=== PATIENT | male | born 1935 | race Caucasian/White ===

== ENCOUNTER 2017-04-10 02:08 | Observation (INO) | payer MEDICARE ==
[~2017-04-10] VITALS: Ht 177.8 cm; Wt 80.9 kg
[~2017-04-10 02:08] MED LIST: AMLO10TA2 PO; ASPI-630 PO; CARV6.252 PO; DONE10TA7 PO; FOSI40TA PO; HYDR12.53 PO; METF500T4 PO; MULT-208 PO; OMEG300C PO; POTASSIUM CHLO10 MEQ PO; SIMV40TA3 PO; TERA2CAP3 PO; VIT1TABL32 PO
[2017-04-10] MEDS ORDERED: NORMAL SALINE IV ONE (03:00)
[2017-04-10 03:09] LABS: BASO # 0.1 x10^3/uL (0.0-0.2); BASO % 1 % (0-3); EOS % 5 % (0-3); HEMOGLOBIN 13.4 g/dL (13.0-17.5); LYMPH # 3.8 x10^3/uL (1.0-4.8); LYMPH % 59 % (24-48); MEAN CORPUSCULAR HEMOGLOBIN 32 pg (25-35); MEAN CORPUSCULAR HGB CONC 34 g/dL (31-37); MEAN CORPUSCULAR VOLUME 92 fL (79-100); MONO % 7 % (0-9); NEUT % 29 % (31-73); PLATELET COUNT 84 x10^3/uL (140-400); RED BLOOD COUNT 4.24 x10^6/uL (4.30-5.70); RED CELL DISTRIBUTION WIDTH 14.4 % (11.5-14.5); WHITE BLOOD COUNT 6.4 x10^3/uL (4.0-11.0)
[2017-04-10] MEDS ORDERED: CONTRAST GIVEN MC PRN (03:15)
[2017-04-10] MEDS ORDERED: IOHEXOL 300 MG/ML 75 ML VIAL IV ONE (03:15)
[2017-04-10] MEDS ORDERED: MORPHINE SULFATE 4 MG/ML DISP.SYRIN. IV ONE ×2 (03:15→04:45)
[2017-04-10 03:19] LABS: CALCIUM 9.2 mg/dL (8.5-10.1); CREATININE 1.1 mg/dL (0.7-1.3); GFR 64.2; POTASSIUM 3.4 mmol/L (3.5-5.1)
[2017-04-10 03:25] LABS: ALBUMIN 3.3 g/dL (3.4-5.0); DIRECT BILIRUBIN 0.2 mg/dL (0.0-0.2); TOTAL BILIRUBIN 0.4 mg/dL (0.2-1.0); TOTAL PROTEIN 6.3 g/dL (6.4-8.2)
[2017-04-10] MEDS: IV NORMAL SALINE 1000ML BAG 1,000 ML IV SCH ×2 (03:25→03:53)
--- NOTE | 2017-04-10 04:13 | RAD ---
CT angiography chest with contrast HISTORY: Hypertension, back pain. TECHNIQUE: Helical CT imaging of the chest with multiplanar 3-D MIP reconstructions of the vessels to characterize vascular anatomy and pathology with 75 mL Omnipaque 300 intravenous contrast. FINDINGS: Extensive calcified plaque of the coronary arteries and thoracic aorta. No thoracic aortic aneurysm or dissection. Heart size normal. There is a thin septation of the central pulmonary artery to the lingula and left lower lobe. No acute pulmonary artery embolus. Esophagus is unremarkable. No adenopathy in the chest. Left hepatic lobe 5 cm oblong hypodense lesion density of 18 units. Smaller 1 cm central right hepatic lobe hypodense lesion density 11 units typical of a cyst. No pneumothorax, or opacities or pleural effusions. Bridging thoracic disc osteophytes are present. IMPRESSION: 1. No acute process. No acute pulmonary artery embolus. No thoracic aortic dissection. 2. Thin septation of the central lobar pulmonary artery to the left lower lobe and lingula, of uncertain significance, could be a fibrous band related to a prior embolus. 3. Indeterminate 5 cm hypodense lesion of the left hepatic lobe. Exposure: One or more of the following individualized dose reduction techniques were utilized for this examination: 1. Automated exposure control 2. Adjustment of the mA and/or kV according to patient size 3. Use of iterative reconstruction technique Electronically signed by: Marlo Puente MD (04/10/2017 4:09 AM) [facility]
--- NOTE | 2017-04-10 04:34 | PHYS DOC ---
Past Medical History Past Medical History: Dementia, Diabetes-Type II, High Cholesterol, Hypertension Past Surgical History: Cholecystectomy Alcohol Use: Heavy Drug Use: None Adult General Chief Complaint Chief Complaint: BACK PAIN - NO INJURY HPI HPI Patient is a 81 year old male with a history of dementia and hypertension who presents with complaints of back pain that feels "inside". Symptoms started last night and continuing the ED. History, ROS, physical exam limited secondary to dementia. Additional history given by the . Patient has been his usual state of health, has been taking the medications as prescribed, no recent falls , no recent illnesses. Complains of pain only started yesterday and is unusual for him. Review of Systems Review of Systems Constitutional: Denies fever or chills [] Eyes: Denies change in visual acuity, redness, or eye pain [] Respiratory: Denies cough or shortness of breath [] Cardiovascular: No chest pain GI: Denies abdominal pain, nausea, vomiting, bloody stools or diarrhea [] Musculoskeletal: yes to back pain Integument: Denies rash or skin lesions [] Neurologic: Denies headache, focal weakness or sensory changes [] ROS limited secondary to dementia Current Medications Current Medications Current Medications Medications (Trade) Dose Ordered Sig/Victor M Start Time Stop Time Status Last Admin Dose Admin Info (Do NOT chart on this entry -- for MONITORING) 1 each PRN DAILY PRN 04/10/17 03:15 04/12/17 03:14 Iohexol (Omnipaque 300 Mg/ml) 75 ml 1X ONCE 04/10/17 03:15 04/10/17 03:16 DC 04/10/17 03:30 75 ML Morphine Sulfate 4 mg 1X ONCE 04/10/17 03:15 04/10/17 03:16 DC 04/10/17 03:25 4 MG Sodium Chloride 1,000 ml @ 1,580 mls/hr Q38M 04/10/17 03:15 04/10/17 04:15 DC 04/10/17 03:25 1,580 MLS/HR Allergies Allergies Allergies Coded Allergies Type Severity Reaction Last Updated Verified No Known Drug Allergies 04/17/14 No Physical Exam Physical Exam Constitutional: Well developed, well nourished, mild distress, non-toxic appearance. [] HENT: Normocephalic, atraumatic, oropharynx dry, no oral exudates, nose normal. [] Eyes: EOMI, conjunctiva normal, no discharge. [] Neck: Normal range of motion, no tenderness, supple, no stridor. No LAD, no JVD , no meningeal signs Cardiovascular:Heart rate regular rhythm, no murmur, equal pulses, normal perfusion Lungs & Thorax: Bilateral breath sounds clear to auscultation, no tachypnea Abdomen: Bowel sounds normal, soft, no tenderness, no masses, no pulsatile masses. [] Skin: Warm, dry, no erythema, no rash. [] Back: No tenderness on palpation, no CVA tenderness. No midline tenderness to palpation, no step-offs Extremities: No tenderness, no cyanosis, ROM intact, no edema. [] Neurologic: Alert, normal motor function,, no focal deficits noted. [] Psychologic: cooperative Current Patient Data Vital Signs Vital Signs Date Time Temp Pulse Resp B/P (MAP) Pulse Ox O2 Delivery O2 Flow Rate FiO2 04/10/17 03:20 53 18 182/89 (120) 94 Room Air 04/10/17 02:20 97.9 97.9 Lab Values Laboratory Tests Test 04/10/17 03:00 White Blood Count 6.4 x10^3/uL (4.0-11.0) Red Blood Count 4.24 x10^6/uL (4.30-5.70) L Hemoglobin 13.4 g/dL (13.0-17.5) Hematocrit 39.0 % (39.0-53.0) Mean Corpuscular Volume 92 fL (79-100) Mean Corpuscular Hemoglobin 32 pg (25-35) Mean Corpuscular Hemoglobin Concent 34 g/dL (31-37) Red Cell Distribution Width 14.4 % (11.5-14.5) Platelet Count 84 x10^3/uL (140-400) L Neutrophils (%) (Auto) 29 % (31-73) L Lymphocytes (%) (Auto) 59 % (24-48) H Monocytes (%) (Auto) 7 % (0-9) Eosinophils (%) (Auto) 5 % (0-3) H Basophils (%) (Auto) 1 % (0-3) Neutrophils # (Auto) 1.9 x10^3uL (1.8-7.7) Lymphocytes # (Auto) 3.8 x10^3/uL (1.0-4.8) Monocytes # (Auto) 0.4 x10^3/uL (0.0-1.1) Eosinophils # (Auto) 0.3 x10^3/uL (0.0-0.7) Basophils # (Auto) 0.1 x10^3/uL (0.0-0.2) Platelet Estimate Pending Sodium Level 138 mmol/L (136-145) Potassium Level 3.4 mmol/L (3.5-5.1) L Chloride Level 102 mmol/L (98-107) Carbon Dioxide Level 28 mmol/L (21-32) Anion Gap 8 (6-14) Blood Urea Nitrogen 15 mg/dL (8-26) Creatinine 1.1 mg/dL (0.7-1.3) Estimated GFR (Cockcroft-Gault) 64.2 Glucose Level 135 mg/dL (70-99) H Calcium Level 9.2 mg/dL (8.5-10.1) Total Bilirubin 0.4 mg/dL (0.2-1.0) Direct Bilirubin 0.2 mg/dL (0.0-0.2) Aspartate Amino Transferase (AST) 23 U/L (15-37) Alanine Aminotransferase (ALT) 18 U/L (16-63) Alkaline Phosphatase 76 U/L (46-116) Troponin I Quantitative 0.021 ng/mL (0.000-0.055) HT-Xcu-K-Type Natriuretic Peptide 145 pg/mL (0-449) Total Protein 6.3 g/dL (6.4-8.2) L Albumin 3.3 g/dL (3.4-5.0) L Laboratory Tests 04/10/17 03:00 Laboratory Tests 04/10/17 03:00 EKG EKG 60, sinus rhythm, no STEMI, EP interpretation at 0220[] Radiology/Procedures Radiology/Procedures [] Course & Med Decision Making Course & Med Decision Making Pertinent Labs and Imaging studies reviewed. (See chart for details) IMPRESSION: 1. No acute process. No acute pulmonary artery embolus. No thoracic aortic dissection. 2. Thin septation of the central lobar pulmonary artery to the left lower lobe and lingula, of uncertain significance, could be a fibrous band related to a prior embolus. 3. Indeterminate 5 cm hypodense lesion of the left hepatic lobe. Pt still complains of pain. BP has improved, systolic 152 states this is unusual for him, ok with admit [] Dragon Disclaimer Dragon Disclaimer This electronic medical record was generated, in whole or in part, using a voice recognition dictation system. Departure Departure Impression: Primary Impression: Hypertension Additional Impression: Back pain Disposition: ADMITTED INPATIENT Admitting Physician: Zeny Lassiter Condition: STABLE Referrals: ERICA THOMAS Jr, MD (PCP) Problem Qualifiers Laura REA MD Apr 10, 2017 04:34
[2017-04-10] MEDS ORDERED: ONDANSETRON PF 4 MG/2 ML VIAL. IV PRN (04:45)
[2017-04-10] MEDS ORDERED: MORPHINE SULFATE 2 MG/ML DISP.SYRIN. IV PRN (04:45)
[2017-04-10 06:03] VITALS: BP 153/68
[2017-04-10] MEDS ORDERED: MEMA10TA PO (06:24)
[2017-04-10] MEDS ORDERED: PRAV40TA2 PO (06:31)
[2017-04-10] MEDS ORDERED: TERA5CAP3 PO (06:31)
[2017-04-10] MEDS ORDERED: POTA20TA4 PO (06:31)
[2017-04-10] MEDS ORDERED: fentaNYL PF VIAL 100 MCG/2 ML VIAL IV PRN (06:45)
[2017-04-10 07:00] VITALS: BP 139/65
[2017-04-10 07:57] LABS: % EOS 1 % (0-5)
[2017-04-10 07:58] LABS: PLT ESTIMATE DECREASED (ADEQUATE)
[2017-04-10] MEDS ORDERED: hydrALAZINE 20 MG/ML VIAL. IVP PRN (08:30)
[2017-04-10] MEDS: MULTIVITAMIN with MINERAL TABLET. PO SCH (09:00)
--- NOTE | 2017-04-10 09:23 | EKG ---
[facility] [address] [place] [address] Test Date: 2017-04-10 Test Time: 02:18:40 Pat Name: ERICA DOTY Department: Room: 202 1 Gender: M Is Manager: : 1935 Requested By: Laura REA Order Number: [id number] Reading MD: Shar Kowalski Measurements Intervals [place] Rate: 60 P: RI: QRS: -2 QRSD: 96 T: 64 QT: 432 QTc: 436 Interpretive Statements SINUS RHYTHM LEFTWARD AXIS Electronically Signed On 04-10-2017 15:11:00 CDT by Shar Kowalski
[2017-04-10] MEDS ORDERED: diphenhydrAMINE HCL 25 MG CAPSULE PO ONE (09:30)
[2017-04-10] MEDS: LIDOCAINE (700MG/PATCH) PATCH. TD PRN ×2 (09:31→15:19)
[2017-04-10] MEDS: amLODIPine BESYLATE 10 MG TABLET PO SCH (09:32)
[2017-04-10] MEDS: OMEGA-3 FATTY ACIDS/FISH OIL 1,000 MG CAPSULE. PO SCH (09:33)
[2017-04-10] MEDS: MULTIVITAMIN I-VITE TABLET. PO SCH (09:33)
[2017-04-10] MEDS: LISINOPRIL 40 MG TABLET. PO SCH (09:33)
[2017-04-10] MEDS: hydroCHLOROthiazide 25 MG TABLET PO SCH (09:33)
[2017-04-10] MEDS: CARVEDILOL 6.25 MG TABLET. PO SCH ×2 (09:33→16:08)
[2017-04-10] MEDS: ASPIRIN CHEWABLE 81 MG TABLET. PO SCH (09:33)
[2017-04-10] MEDS: ENOXAPARIN 40 MG/0.4 ML SYRINGE. SQ SCH (09:34)
[2017-04-10] MEDS: POTASSIUM CHLORIDE 20 MEQ TABLET.ER. PO SCH ×2 (09:36→16:07)
[2017-04-10 11:00] VITALS: BP 158/70
--- NOTE | 2017-04-10 12:47 | PDOC1 ---
History and Physical Date of Admission Date of Admission DATE: 04/10/17 TIME: 12:39 Identification/Chief Complaint Chief Complaint back pain, upper acute onset Problems: Source Source: Caregiver, Chart review, Patient History of Present Illness History of Present Illness Very pleasant 81 y.o male, lives at home with , no assistive device, bowls as a hobby, came to ER bec back pain and BP was high. CTA was done to r.o dissection and that was neg, All family members present, pt actually wants to go home. BUt we have not done anything yet, Agreed to stay, I will have pT.OT, physiatry and cancel cards consult - dw Dr. Marin, EKG ok, I can mange BP, Sees Dr Shadi Gifford as OP. BP 150s now systolic, no sxs when high BP, CLaims usual BP is 140s at home, complaint to meds. BAck pain was sudden onset, upper thru lower back, denies fall or recent trauma. NO bilateral leg weakness or urinary fecal incontinence. No CP. GOt morphine, for back pain, had some itching so I gave benadrylo PO, and now seems sleepy Fentanyl worked better, but will dec dose to 25mgs- opiate naive Past Medical History Cardiovascular: HTN CENTRAL NERVOUS SYSTEM: Dementia Past Surgical History Past Surgical History: No pertinent history Family History Family History: Hypertension Social History Smoke: No ALCOHOL: none Drugs: None Current Problem List Problem List Problems Medical Problems: (1) Back pain Status: Acute (2) Hypertension Status: Acute Problems: Current Medications Current Medications Current Medications Sodium Chloride 1,580 ml @ 1,580 mls/hr 1X ONCE IV ; Start 04/10/17 at 03:00; Stop 04/10/17 at 03:59; Status UNV Morphine Sulfate 4 mg 1X ONCE IV Last administered on 04/10/17 03:25; Start 04/10/17 at 03:15; Stop 04/10/17 at 03:16; Status DC Iohexol (Omnipaque 300 Mg/ml) 75 ml 1X ONCE IV Last administered on 04/10/17 03:30; Start 04/10/17 at 03:15; Stop 04/10/17 at 03:16; Status DC Sodium Chloride 1,000 ml @ 1,580 mls/hr Q38M IV Last administered on 03:25; Start 04/10/17 at 03:15; Stop 04/10/17 at 04:15; Status DC Info (Do NOT chart on this entry -- for MONITORING) 1 each PRN DAILY PRN MC SEE COMMENTS; Start 04/10/17 at 03:15; Stop 04/12/17 at 03:14 Morphine Sulfate 4 mg 1X ONCE IV Last administered on 04/10/17 04:57; Start 04/10/17 at 04:45; Stop 04/10/17 at 05:02; Status DC Ondansetron HCl (Zofran) 4 mg PRN Q8HRS PRN IV NAUSEA/VOMITING; Start 04/10/17 at 04:45; Stop 04/11/17 at 04:44 Morphine Sulfate 2 mg PRN Q2HR PRN IV PAIN; Start 04/10/17 at 04:45; Stop 04/10 at 09:23; Status DC Fentanyl Citrate (Fentanyl 2ml Vial) 50 mcg PRN Q2HR PRN IV PAIN Last administered on 04/10/17 07:27; Start 04/10/17 at 06:45 Hydralazine HCl (Apresoline) 10 mg PRN Q4HRS PRN IVP ELEVATED BP, SEE COMMENTS ; Start 04/10/17 at 08:30 Amlodipine Besylate (Norvasc) 10 mg DAILY PO Last administered on 04/10/17 09: 32; Start 04/10/17 at 09:00 Aspirin (Children'S Aspirin) 81 mg DAILY PO Last administered on 04/10/17 09: 33; Start 04/10/17 at 09:00 Carvedilol (Coreg) 3.125 mg BIDWMEALS PO Last administered on 04/10/17 09:33; Start 04/10/17 at 09:00 Donepezil HCl (Aricept) 20 mg DAILYWSUP PO ; Start 04/10/17 at 17:00 Hydrochlorothiazide (Hydrodiuril) 25 mg DAILY PO Last administered on 09:33; Start 04/10/17 at 09:00 Memantine (Namenda) 10 mg DAILYWSUP PO ; Start 04/10/17 at 17:00 Potassium Chloride (Klor-Con) 20 meq BIDWMEALS PO Last administered on 09:36; Start 04/10/17 at 09:00 Terazosin HCl (Hytrin) 5 mg QHS PO ; Start 04/10/17 at 21:00 Multivitamins/ Minerals (I-Peterson) 1 tab DAILY PO Last administered on 04/10/17 09:33; Start 04/10/17 at 09:00 Lisinopril (Prinivil) 40 mg DAILY PO Last administered on 04/10/17 09:33; Start 04/10/17 at 09:00 Multivitamins (Thera M Plus) 1 tab DAILY PO ; Start 04/10/17 at 09:00 Fish Oil (Fish Oil) 1,000 mg DAILY PO Last administered on 04/10/17 09:33; Start 04/10/17 at 09:00 Atorvastatin Calcium (Lipitor) 10 mg QHS PO ; Start 04/10/17 at 21:00 Enoxaparin Sodium (Lovenox 40mg Syringe) 40 mg Q24H SQ Last administered on 09:34; Start 04/10/17 at 08:30 Diphenhydramine HCl (Benadryl) 25 mg 1X ONCE PO Last administered on 09:32; Start 04/10/17 at 09:30; Stop 04/10/17 at 09:31; Status DC Lidocaine (Lidoderm) 1 patch PRN DAILY PRN TD PAIN Last administered on 09:31; Start 04/10/17 at 09:30 Active Scripts Active Reported Terazosin Hcl 5 Mg Capsule 1 Cap PO QHS Pravastatin Sodium 40 Mg Tablet 1 Tab PO QHS Klor-Con M20 (Potassium Chloride) 20 Meq Tab.er.prt 20 Meq PO BIDWMEALS Namenda (Memantine Hcl) 10 Mg Tablet 10 Mg PO DAILYWSUP Fish Oil ([place]-3 Fatty Acids) 300 Mg Capsule 300 Mg PO BID Multi-Day Vitamins (Multivitamin) 1 Each Tablet 1 Tab PO DAILY Amlodipine Besylate 10 Mg Tablet 10 Mg PO DAILY Hydrochlorothiazide Capsule (Hydrochlorothiazide) 12.5 Mg Capsule 25 Mg PO DAILY Aspirin 81 Mg Tab.chew 81 Mg PO Ocuvite Tablet (Vit A,C & E/Lutein/Minerals) 1 Each Tablet 1 Each PO Fosinopril Sodium 40 Mg Tablet 1 Tab PO DAILY Carvedilol 6.25 Mg Tablet 0.5 Tab PO BID Donepezil Hcl 10 Mg Tablet 20 Mg PO DAILYWSUP Allergies Allergies: Coded Allergies: No Known Drug Allergies (Unverified , 04/17/14) ROS Review of System weak, all else is neg except HPI Physical Exam General: Oriented X3, Cooperative, No acute distress, Other (slightly sleepy) HEENT: PERRLA Lungs: Clear to auscultation, Normal air movement Heart: RRR, no thrills, no rubs, no gallops Cardiovascular: S1, S2 Breasts: Normal, Rt breast nml w/o mass, Lt breast nml w/o mass, Nipples normal Abdomen: Normal bowel sounds, Soft, No tenderness, No hepatosplenomegaly, No masses Male Genitals Exam: normal genitalia Extremities: No clubbing, No cyanosis, No edema, Normal pulses, No tenderness/ swelling Skin: No rashes, No breakdown, No significant lesion Neuro: Normal gait, Normal speech, Strength at 5/5 X4 ext, Normal tone, Sensation intact, Cranial nerves 3-12 NL, Reflexes 2+ Psych/Mental Status: Mental status NL, Mood NL Vitals Vitals Vital Signs Date Time Temp Pulse Resp B/P (MAP) Pulse Ox O2 Delivery O2 Flow Rate FiO2 04/10/17 11:00 97.4 52 20 158/70 (99) 92 Room Air 97.4 Labs Labs Laboratory Tests Test 04/10/17 03:00 04/10/17 10:43 White Blood Count 6.4 x10^3/uL (4.0-11.0) Red Blood Count 4.24 x10^6/uL (4.30-5.70) Hemoglobin 13.4 g/dL (13.0-17.5) Hematocrit 39.0 % (39.0-53.0) Mean Corpuscular Volume 92 fL (79-100) Mean Corpuscular Hemoglobin 32 pg (25-35) Mean Corpuscular Hemoglobin Concent 34 g/dL (31-37) Red Cell Distribution Width 14.4 % (11.5-14.5) Platelet Count 84 x10^3/uL (140-400) Neutrophils (%) (Auto) 29 % (31-73) Lymphocytes (%) (Auto) 59 % (24-48) Monocytes (%) (Auto) 7 % (0-9) Eosinophils (%) (Auto) 5 % (0-3) Basophils (%) (Auto) 1 % (0-3) Neutrophils # (Auto) 1.9 x10^3uL (1.8-7.7) Lymphocytes # (Auto) 3.8 x10^3/uL (1.0-4.8) Monocytes # (Auto) 0.4 x10^3/uL (0.0-1.1) Eosinophils # (Auto) 0.3 x10^3/uL (0.0-0.7) Basophils # (Auto) 0.1 x10^3/uL (0.0-0.2) Segmented Neutrophils % 24 % (35-66) Lymphocytes % 72 % (24-48) Monocytes % 3 % (0-10) Eosinophils % 1 % (0-5) Platelet Estimate Decreased (ADEQUATE) Sodium Level 138 mmol/L (136-145) Potassium Level 3.4 mmol/L (3.5-5.1) Chloride Level 102 mmol/L (98-107) Carbon Dioxide Level 28 mmol/L (21-32) Anion Gap 8 (6-14) Blood Urea Nitrogen 15 mg/dL (8-26) Creatinine 1.1 mg/dL (0.7-1.3) Estimated GFR (Cockcroft-Gault) 64.2 Glucose Level 135 mg/dL (70-99) Calcium Level 9.2 mg/dL (8.5-10.1) Total Bilirubin 0.4 mg/dL (0.2-1.0) Direct Bilirubin 0.2 mg/dL (0.0-0.2) Aspartate Amino Transf (AST/SGOT) 23 U/L (15-37) Alanine Aminotransferase (ALT/SGPT) 18 U/L (16-63) Alkaline Phosphatase 76 U/L (46-116) Troponin I Quantitative 0.021 ng/mL (0.000-0.055) 0.021 ng/mL (0.000-0.055) TF-Mcb-T-Type Natriuretic Peptide 145 pg/mL (0-449) Total Protein 6.3 g/dL (6.4-8.2) Albumin 3.3 g/dL (3.4-5.0) Laboratory Tests Test 04/10/17 03:00 04/10/17 10:43 White Blood Count 6.4 x10^3/uL (4.0-11.0) Red Blood Count 4.24 x10^6/uL (4.30-5.70) Hemoglobin 13.4 g/dL (13.0-17.5) Hematocrit 39.0 % (39.0-53.0) Mean Corpuscular Volume 92 fL (79-100) Mean Corpuscular Hemoglobin 32 pg (25-35) Mean Corpuscular Hemoglobin Concent 34 g/dL (31-37) Red Cell Distribution Width 14.4 % (11.5-14.5) Platelet Count 84 x10^3/uL (140-400) Neutrophils (%) (Auto) 29 % (31-73) Lymphocytes (%) (Auto) 59 % (24-48) Monocytes (%) (Auto) 7 % (0-9) Eosinophils (%) (Auto) 5 % (0-3) Basophils (%) (Auto) 1 % (0-3) Neutrophils # (Auto) 1.9 x10^3uL (1.8-7.7) Lymphocytes # (Auto) 3.8 x10^3/uL (1.0-4.8) Monocytes # (Auto) 0.4 x10^3/uL (0.0-1.1) Eosinophils # (Auto) 0.3 x10^3/uL (0.0-0.7) Basophils # (Auto) 0.1 x10^3/uL (0.0-0.2) Segmented Neutrophils % 24 % (35-66) Lymphocytes % 72 % (24-48) Monocytes % 3 % (0-10) Eosinophils % 1 % (0-5) Platelet Estimate Decreased (ADEQUATE) Sodium Level 138 mmol/L (136-145) Potassium Level 3.4 mmol/L (3.5-5.1) Chloride Level 102 mmol/L (98-107) Carbon Dioxide Level 28 mmol/L (21-32) Anion Gap 8 (6-14) Blood Urea Nitrogen 15 mg/dL (8-26) Creatinine 1.1 mg/dL (0.7-1.3) Estimated GFR (Cockcroft-Gault) 64.2 Glucose Level 135 mg/dL (70-99) Calcium Level 9.2 mg/dL (8.5-10.1) Total Bilirubin 0.4 mg/dL (0.2-1.0) Direct Bilirubin 0.2 mg/dL (0.0-0.2) Aspartate Amino Transf (AST/SGOT) 23 U/L (15-37) Alanine Aminotransferase (ALT/SGPT) 18 U/L (16-63) Alkaline Phosphatase 76 U/L (46-116) Troponin I Quantitative 0.021 ng/mL (0.000-0.055) 0.021 ng/mL (0.000-0.055) EJ-Ban-N-Type Natriuretic Peptide 145 pg/mL (0-449) Total Protein 6.3 g/dL (6.4-8.2) Albumin 3.3 g/dL (3.4-5.0) VTE Prophylaxis Ordered VTE Prophylaxis Devices: Yes VTE Pharmacological Prophylaxi: Yes Assessment/Plan Assessment/Plan 1. Acute onset upper and lower back pain 2. HTN urgency POA, better 3. Dementia 4. Incidental liver cyst PLAn: Admit COnsult Physiatry Given the acute nature of back pain, check some xrays PT/OT REsume BP meds Prn IV Hydralazine (HR 50s) CAncel cards consult Dec fentanyl to 25 IV q4 prn PO pain meds Trial of lidoderm patch ericka Parmar and family members Check UA for UTI - requested by HARRY JOINER MD Apr 10, 2017 12:47
[2017-04-10] MEDS ORDERED: IBUPROFEN 400 MG TABLET. PO PRN (13:00)
[2017-04-10] MEDS ORDERED: LIDOCAINE (700MG/PATCH) PATCH. TD ONE (14:45)
--- NOTE | 2017-04-10 14:57 | RAD ---
Two-view study of the thoracolumbar junction Indications: Lower back pain for years. Findings: No compression fracture or discitis or osteolytic process is seen. There is mild degenerative endplate spurring. IMPRESSION: Mild degenerative spondylosis. No compression fracture is seen.
[2017-04-10 15:30] VITALS: BP 169/77
[2017-04-10] MEDS: DONEPEZIL HCL 10 MG TABLET. PO SCH (16:07)
[2017-04-10] MEDS: MEMANTINE 10 MG TABLET. PO SCH (16:07)
[2017-04-10 16:38] LABS: BILIRUBIN,URINE NEGATIVE (NEG); GLUCOSE,URINE NEGATIVE (NEG); NITRITE,URINE NEGATIVE (NEG); PH,URINE 6.5; PROTEIN,URINE 30 mg/dL (NEG-TRACE); UROBILINOGEN,URINE 0.2 mg/dL (0.2 mg/dL)
[2017-04-10 16:53] LABS: BACTERIA,URINE 0 /HPF (0-FEW); RBC,URINE RARE /HPF (0-2); WBC,URINE 0 /HPF (0-4)
[2017-04-10 16:54] LABS: SQUAMOUS EPITHELIAL CELL,UR OCC /LPF
[2017-04-10 19:20] VITALS: BP 168/76
[2017-04-10] MEDS ORDERED: ATORVASTATIN CALCIUM 10 MG TABLET. PO SCH (21:00)
[2017-04-10] MEDS ORDERED: TERAZOSIN 5 MG CAPSULE. PO SCH (21:00)
[2017-04-10 22:50] VITALS: BP 155/72
[2017-04-11 03:00] VITALS: BP 182/77
[2017-04-11 03:53] LABS: BASO # 0.1 x10^3/uL (0.0-0.2); BASO % 1 % (0-3); EOS % 4 % (0-3); HEMATOCRIT 39.6 % (39.0-53.0); HEMOGLOBIN 13.3 g/dL (13.0-17.5); LYMPH # 4.1 x10^3/uL (1.0-4.8); LYMPH % 62 % (24-48); MEAN CORPUSCULAR HEMOGLOBIN 32 pg (25-35); MEAN CORPUSCULAR HGB CONC 34 g/dL (31-37); MEAN CORPUSCULAR VOLUME 94 fL (79-100); MONO % 7 % (0-9); NEUT % 26 % (31-73); PLATELET COUNT 83 x10^3/uL (140-400); RED BLOOD COUNT 4.23 x10^6/uL (4.30-5.70); RED CELL DISTRIBUTION WIDTH 14.9 % (11.5-14.5); WHITE BLOOD COUNT 6.6 x10^3/uL (4.0-11.0)
--- NOTE | 2017-04-11 04:07 | ACF ---
Admission Forms Criteria HYPERTENSION Clinical Indications for Admission to Inpatient Care ( Place "X" for any and all applicable criteria): Admission is indicated for 1 or more of the following(1)(2)(3)(4)(5)(6)(7)(8)(9) (10): [ ]I. Hypertensive emergency, with evidence of acute and progressing target organ disease as indicated by 1 or more of the following: [ ]a) Hypertensive encephalopathy (eg, confusion, altered mental status) [ ]b) Cerebral infarction [ ]c) Intracranial hemorrhage [ ]d) Myocardial ischemia or infarction [ ]e) Heart failure (eg. Pulmonary edema) [ ]f) Aortic dissection [ ]g) Increased creatinine (new) with reduction of more than 50% in estimated glomerular filtration rate from baseline [ ]h) Seizure [ ]i) Papilledema [ ]j) Retinal hemorrhage [ ]k) Microangiopathic hemolytic anemia [ ]l) Other significant finding secondary to hypertension [ ]II. Adrenergic or sympathomimetic crisis (eg, severe hypertension due to pheochromocytoma crisis, cocaine or amphetamine intoxication, or clonidine withdrawal) [X ]III. Severe hypertension (SBP greater than 180 mmHg or DBP greater than 110 mmHg or greater than the 95th percentile for age, gender, and height in pediatric patients) that cannot be controlled (eg, to SBP less than 160 mmHg and DBP less than 100 mmHg in adults) by treatment with oral medication in emergency department or observation care Extended stay beyond goal length of stay may be needed for(11)(12)(13): [ ]a) Persistent hypertensive encephalopathy [ ]b) Continuation of pulmonary edema [ ]c) Recurring or persistent severe hypertension [ ]d) Target organ damage (eg, angina, stroke, aortic dissection) The original [employer] content created by [employer] has been revised. The portions of the content which have been revised are identified through the use of italic text, and [email or web address] has neither reviewed nor approved the modified material. All other unmodified content is copyright [employer]. Please see references footnoted in the original [email or web address] [employer] edition 2014 Admission Criteria Met?: Yes LESTER UMAÑA Apr 11, 2017 04:06
[2017-04-11 04:23] LABS: CALCIUM 8.3 mg/dL (8.5-10.1); CREATININE 1.1 mg/dL (0.7-1.3); GFR 64.2; POTASSIUM 3.7 mmol/L (3.5-5.1); TOTAL BILIRUBIN 0.5 mg/dL (0.2-1.0); TOTAL PROTEIN 5.9 g/dL (6.4-8.2)
[2017-04-11 07:36] VITALS: BP 195/82
[2017-04-11] MEDS: MULTIVITAMIN I-VITE TABLET. PO SCH (08:00)
[2017-04-11] MEDS: MULTIVITAMIN with MINERAL TABLET. PO SCH (08:00)
[2017-04-11] MEDS: hydroCHLOROthiazide 25 MG TABLET PO SCH (08:00)
[2017-04-11] MEDS: OMEGA-3 FATTY ACIDS/FISH OIL 1,000 MG CAPSULE. PO SCH (08:00)
[2017-04-11] MEDS: ASPIRIN CHEWABLE 81 MG TABLET. PO SCH (08:01)
[2017-04-11] MEDS: POTASSIUM CHLORIDE 20 MEQ TABLET.ER. PO SCH ×2 (08:01→17:46)
[2017-04-11] MEDS: amLODIPine BESYLATE 10 MG TABLET PO SCH (08:02)
[2017-04-11] MEDS: LISINOPRIL 40 MG TABLET. PO SCH (08:03)
[2017-04-11] MEDS: ENOXAPARIN 40 MG/0.4 ML SYRINGE. SQ SCH (08:08)
[2017-04-11] MEDS ORDERED: LIDOCAINE (700MG/PATCH) PATCH. TD SCH (09:00)
[2017-04-11] MEDS: CARVEDILOL 6.25 MG TABLET. PO SCH (09:06)
[2017-04-11] MEDS ORDERED: HYDROcodone/APAP 5/325MG 1 TAB TABLET PO PRN (09:30)
[2017-04-11 11:03] VITALS: BP 154/68
--- NOTE | 2017-04-11 12:29 | PDOC2 ---
CARDIAC CONSULT DATE OF CONSULT Date of Consult DATE: 04/11/17 TIME: 11:50 REASON FOR CONSULT Reason for Consult: HTN REFERRING PHYSICIAN Referring Physician: Eros SOURCE Source: Chart review, Patient HISTORY OF PRESENT ILLNESS HISTORY OF PRESENT ILLNESS This is a pleasant 81 yo male admitted for complains of upper back pain. Upon admission he has been noted with high BP. Reports that he has been taking his BP meds regularly and actually his SBP runs in the 140s. Denies any SOA, CP, palpitations, heavy lifting. He actually does bowling twice a week without difficulty and there has been no changes to his activity tolerance. Denies any falls or any injury. In addition he also has been noted with HR in the 40s and currently e does have HR in the 60s with better BP. He does have dementia and he takes Aricept/Namenda and coreg. He does not have any CAD nor CVA in the past nor bleeding history and his wif sees Dr. Stoddard does requesting to see the same automotive internet sales manager. His back pain is not associated with nausea, vomiting, palpitations and no jaw or arm pain. This started Tuesday which then has gotten worse prompting him to come to ED. No prior hx of aneurysm. PAST MEDICAL HISTORY Cardiovascular: HTN, Hyperlipidemia Pulmonary: No pertinent hx CENTRAL NERVOUS SYSTEM: Dementia GI: No pertinent hx Heme/Onc: No pertinent hx Hepatobiliary: No pertinent hx Psych: No pertinent hx Musculoskeletal: low back pain, Osteoarthritis Rheumatologic: No pertinent hx Infectious disease: No pertinent hx ENT: No pertinent hx Renal/: Benign prostatic enlarg. Endocrine: Diabetes (?) Dermatology: No pertinent hx PAST SURGICAL HISTORY Past Surgical History: Cholecystectomy, Tonsillectomy, Other (hemorrhoid removal) FAMILY HISTORY Family History: Coronary Artery Disease SOCIAL HISTORY Smoke: No (quit 30 pk yr) ALCOHOL: occassional Drugs: None Lives: with Family CURRENT MEDICATIONS CURRENT MEDICATIONS Current Medications Medications (Trade) Dose Ordered Sig/Victor M Route PRN Reason Start Time Stop Time Status Last Admin Dose Admin Donepezil HCl (Aricept) 20 mg DAILYWSUP PO 04/10/17 17:00 04/10/17 16:07 Memantine (Namenda) 10 mg DAILYWSUP PO 04/10/17 17:00 04/10/17 16:07 Terazosin HCl (Hytrin) 5 mg QHS PO 04/10/17 21:00 04/10/17 21:23 Atorvastatin Calcium (Lipitor) 10 mg QHS PO 04/10/17 21:00 04/10/17 21:22 Lidocaine (Lidoderm) 1 patch DAILY TD 04/11/17 09:00 04/11/17 08:07 Lidocaine (Lidoderm) 1 patch 1X ONCE TD 04/10/17 14:45 04/10/17 14:46 DC 04/10/17 15:23 ALLERGIES ALLERGIES: Coded Allergies: No Known Drug Allergies (Unverified , 04/17/14) ROS Review of System 14 point ROS evaluated with pertinent positives noted per HPI PHYSICAL EXAM General: Alert, Oriented X3, Cooperative, No acute distress HEENT: Atraumatic, Mucous membr. moist/pink Lungs: Clear to auscultation, Normal air movement Heart: Regular rate (SR), Normal S1, Normal S2, Other (3/6 systoli murmur to FAHAD and LLS border) Extremities: No cyanosis, No edema Skin: No breakdown, No significant lesion Neuro: Sensation intact Psych/Mental Status: Mental status NL, Mood NL MUSCULOSKELETAL: Osteoarthritic changes both hands VITALS VITALS Vital Signs Date Time Temp Pulse Resp B/P (MAP) Pulse Ox O2 Delivery O2 Flow Rate FiO2 04/11/17 11:03 98.0 56 18 154/68 (96) 93 Room Air 98.0 LABS Lab: Laboratory Tests Test 04/10/17 16:15 04/10/17 16:30 04/11/17 03:40 Urine Collection Type Unknown Urine Color Yellow Urine Clarity Clear Urine pH 6.5 Urine Specific [place] 1.020 Urine Protein 30 mg/dL (NEG-TRACE) Urine Glucose (UA) Negative mg/dL (NEG) Urine Ketones (Stick) Negative mg/dL (NEG) Urine Blood Negative (NEG) Urine Nitrite Negative (NEG) Urine Bilirubin Negative (NEG) Urine Urobilinogen Dipstick 0.2 mg/dL (0.2 mg/dL) Urine Leukocyte Esterase Negative (NEG) Urine RBC Rare /HPF (0-2) Urine WBC 0 /HPF (0-4) Urine Squamous Epithelial Cells Occ /LPF Urine Bacteria 0 /HPF (0-FEW) Urine Mucus Slight /LPF Troponin I Quantitative < 0.017 ng/mL (0.000-0.055) White Blood Count 6.6 x10^3/uL (4.0-11.0) Red Blood Count 4.23 x10^6/uL (4.30-5.70) Hemoglobin 13.3 g/dL (13.0-17.5) Hematocrit 39.6 % (39.0-53.0) Mean Corpuscular Volume 94 fL (79-100) Mean Corpuscular Hemoglobin 32 pg (25-35) Mean Corpuscular Hemoglobin Concent 34 g/dL (31-37) Red Cell Distribution Width 14.9 % (11.5-14.5) Platelet Count 83 x10^3/uL (140-400) Neutrophils (%) (Auto) 26 % (31-73) Lymphocytes (%) (Auto) 62 % (24-48) Monocytes (%) (Auto) 7 % (0-9) Eosinophils (%) (Auto) 4 % (0-3) Basophils (%) (Auto) 1 % (0-3) Neutrophils # (Auto) 1.7 x10^3uL (1.8-7.7) Lymphocytes # (Auto) 4.1 x10^3/uL (1.0-4.8) Monocytes # (Auto) 0.4 x10^3/uL (0.0-1.1) Eosinophils # (Auto) 0.3 x10^3/uL (0.0-0.7) Basophils # (Auto) 0.1 x10^3/uL (0.0-0.2) Sodium Level 141 mmol/L (136-145) Potassium Level 3.7 mmol/L (3.5-5.1) Chloride Level 106 mmol/L (98-107) Carbon Dioxide Level 31 mmol/L (21-32) Anion Gap 4 (6-14) Blood Urea Nitrogen 16 mg/dL (8-26) Creatinine 1.1 mg/dL (0.7-1.3) Estimated GFR (Cockcroft-Gault) 64.2 BUN/Creatinine Ratio 15 (6-20) Glucose Level 120 mg/dL (70-99) Calcium Level 8.3 mg/dL (8.5-10.1) Total Bilirubin 0.5 mg/dL (0.2-1.0) Aspartate Amino Transf (AST/SGOT) 31 U/L (15-37) Alanine Aminotransferase (ALT/SGPT) 29 U/L (16-63) Alkaline Phosphatase 78 U/L (46-116) Total Protein 5.9 g/dL (6.4-8.2) Albumin 3.0 g/dL (3.4-5.0) Albumin/Globulin Ratio 1.0 (1.0-1.7) ECHOCARDIOGRAM ECHOCARDIOGRAM <Conclusion> Tissue Doppler imaging reveals abnormal left ventricular diastolic dysfunction. Grade 1 diastolic dysfunction The left ventricular systolic function is normal and the ejection fraction is within normal range. LVEF 65% The right ventricle is normal size. The left atrium size is normal. The right atrium size is normal. There is no significant aortic valvular stenosis. The aortic valve is mildly calcified. The aortic valve is probably trileaflet. The non coronary cusp is calcified The coronary cusp is calcific. Doppler and Color Flow revealed trace mitral regurgitation. Doppler and Color Flow revealed trace to mild tricuspid regurgitation. The pulmonary artery systolic pressure is estimated at less than 30 mmHg. There is no pulmonary hypertension. The PA pressure was estimated at 25 mmHg. The aortic root is normal in size. No significant pericardial effusion was seen DATE: 04/24/141945 ASSESSMENT/PLAN ASSESSMENT/PLAN 1. Accelerated HTN: possible hypertensive heart disease. 2. Asymptomatic bradycardia: could be reactive to high BP but also pt is on home coreg and aricept. QTc 436 3. Upper back pain: Dr. Jones following, better overnight. 4. Thrombocytopenia unknown etiology: 2013 PLT was 170 and presently 83. 5. Valvular insufficiency: systolic murmur. Recommendations 1. DC coreg. Continue with norvasc. ACEi/HCTZ and place on hydralazine. 2. Await TTE for further recommendations 3. Will check with pharmacy to review meds that would induce low PLT. consider holding lovenox for now and continue with mechanical VTE prophylaxis. Defer to PCP. Problems: SHEILA FARRAR MARKETING PROJECT COORDINATOR Apr 11, 2017 12:29
[2017-04-11] MEDS ORDERED: HYDR-2869 PO (12:46)
--- NOTE | 2017-04-11 12:47 | PDOC3 ---
Discharge Summary Visit Information Date of Admission: Apr 10, 2017 Date of Discharge: Apr 11, 2017 Admitting Diagnosis: back pain Final Diagnosis 1. Accelerated HTN: possible hypertensive heart disease. 2. Asymptomatic bradycardia: could be reactive to high BP but also pt is on home coreg and aricept. QTc 436 3. Upper back pain: Dr. Jones following, better overnight. 4. Thrombocytopenia unknown etiology: 2013 PLT was 170 and presently 83. 5. Valvular insufficiency: systolic murmur. Problems: Problems Medical Problems: (1) Back pain Status: Acute (2) Hypertension Status: Acute Brief Hospital Course Allergies Allergies Coded Allergies Type Severity Reaction Last Updated Verified No Known Drug Allergies 04/17/14 No Vital Signs Vital Signs Date Time Temp Pulse Resp B/P (MAP) Pulse Ox O2 Delivery O2 Flow Rate FiO2 04/11/17 11:03 98.0 56 18 154/68 (96) 93 Room Air 98.0 Lab Results Laboratory Tests Test 04/10/17 03:00 04/10/17 10:43 04/10/17 16:15 04/10/17 16:30 White Blood Count 6.4 x10^3/uL (4.0-11.0) Red Blood Count 4.24 x10^6/uL (4.30-5.70) Hemoglobin 13.4 g/dL (13.0-17.5) Hematocrit 39.0 % (39.0-53.0) Mean Corpuscular Volume 92 fL (79-100) Mean Corpuscular Hemoglobin 32 pg (25-35) Mean Corpuscular Hemoglobin Concent 34 g/dL (31-37) Red Cell Distribution Width 14.4 % (11.5-14.5) Platelet Count 84 x10^3/uL (140-400) Neutrophils (%) (Auto) 29 % (31-73) Lymphocytes (%) (Auto) 59 % (24-48) Monocytes (%) (Auto) 7 % (0-9) Eosinophils (%) (Auto) 5 % (0-3) Basophils (%) (Auto) 1 % (0-3) Neutrophils # (Auto) 1.9 x10^3uL (1.8-7.7) Lymphocytes # (Auto) 3.8 x10^3/uL (1.0-4.8) Monocytes # (Auto) 0.4 x10^3/uL (0.0-1.1) Eosinophils # (Auto) 0.3 x10^3/uL (0.0-0.7) Basophils # (Auto) 0.1 x10^3/uL (0.0-0.2) Segmented Neutrophils % 24 % (35-66) Lymphocytes % 72 % (24-48) Monocytes % 3 % (0-10) Eosinophils % 1 % (0-5) Platelet Estimate Decreased (ADEQUATE) Sodium Level 138 mmol/L (136-145) Potassium Level 3.4 mmol/L (3.5-5.1) Chloride Level 102 mmol/L (98-107) Carbon Dioxide Level 28 mmol/L (21-32) Anion Gap 8 (6-14) Blood Urea Nitrogen 15 mg/dL (8-26) Creatinine 1.1 mg/dL (0.7-1.3) Estimated GFR (Cockcroft-Gault) 64.2 Glucose Level 135 mg/dL (70-99) Calcium Level 9.2 mg/dL (8.5-10.1) Total Bilirubin 0.4 mg/dL (0.2-1.0) Direct Bilirubin 0.2 mg/dL (0.0-0.2) Aspartate Amino Transf (AST/SGOT) 23 U/L (15-37) Alanine Aminotransferase (ALT/SGPT) 18 U/L (16-63) Alkaline Phosphatase 76 U/L (46-116) Troponin I Quantitative 0.021 ng/mL (0.000-0.055) 0.021 ng/mL (0.000-0.055) < 0.017 ng/mL (0.000-0.055) QJ-Fqs-V-Type Natriuretic Peptide 145 pg/mL (0-449) Total Protein 6.3 g/dL (6.4-8.2) Albumin 3.3 g/dL (3.4-5.0) Urine Collection Type Unknown Urine Color Yellow Urine Clarity Clear Urine pH 6.5 Urine Specific [place] 1.020 Urine Protein 30 mg/dL (NEG-TRACE) Urine Glucose (UA) Negative mg/dL (NEG) Urine Ketones (Stick) Negative mg/dL (NEG) Urine Blood Negative (NEG) Urine Nitrite Negative (NEG) Urine Bilirubin Negative (NEG) Urine Urobilinogen Dipstick 0.2 mg/dL (0.2 mg/dL) Urine Leukocyte Esterase Negative (NEG) Urine RBC Rare /HPF (0-2) Urine WBC 0 /HPF (0-4) Urine Squamous Epithelial Cells Occ /LPF Urine Bacteria 0 /HPF (0-FEW) Urine Mucus Slight /LPF Test 04/11/17 03:40 White Blood Count 6.6 x10^3/uL (4.0-11.0) Red Blood Count 4.23 x10^6/uL (4.30-5.70) Hemoglobin 13.3 g/dL (13.0-17.5) Hematocrit 39.6 % (39.0-53.0) Mean Corpuscular Volume 94 fL (79-100) Mean Corpuscular Hemoglobin 32 pg (25-35) Mean Corpuscular Hemoglobin Concent 34 g/dL (31-37) Red Cell Distribution Width 14.9 % (11.5-14.5) Platelet Count 83 x10^3/uL (140-400) Neutrophils (%) (Auto) 26 % (31-73) Lymphocytes (%) (Auto) 62 % (24-48) Monocytes (%) (Auto) 7 % (0-9) Eosinophils (%) (Auto) 4 % (0-3) Basophils (%) (Auto) 1 % (0-3) Neutrophils # (Auto) 1.7 x10^3uL (1.8-7.7) Lymphocytes # (Auto) 4.1 x10^3/uL (1.0-4.8) Monocytes # (Auto) 0.4 x10^3/uL (0.0-1.1) Eosinophils # (Auto) 0.3 x10^3/uL (0.0-0.7) Basophils # (Auto) 0.1 x10^3/uL (0.0-0.2) Sodium Level 141 mmol/L (136-145) Potassium Level 3.7 mmol/L (3.5-5.1) Chloride Level 106 mmol/L (98-107) Carbon Dioxide Level 31 mmol/L (21-32) Anion Gap 4 (6-14) Blood Urea Nitrogen 16 mg/dL (8-26) Creatinine 1.1 mg/dL (0.7-1.3) Estimated GFR (Cockcroft-Gault) 64.2 BUN/Creatinine Ratio 15 (6-20) Glucose Level 120 mg/dL (70-99) Calcium Level 8.3 mg/dL (8.5-10.1) Total Bilirubin 0.5 mg/dL (0.2-1.0) Aspartate Amino Transf (AST/SGOT) 31 U/L (15-37) Alanine Aminotransferase (ALT/SGPT) 29 U/L (16-63) Alkaline Phosphatase 78 U/L (46-116) Total Protein 5.9 g/dL (6.4-8.2) Albumin 3.0 g/dL (3.4-5.0) Albumin/Globulin Ratio 1.0 (1.0-1.7) Laboratory Tests Test 04/10/17 16:15 04/10/17 16:30 04/11/17 03:40 Urine Collection Type Unknown Urine Color Yellow Urine Clarity Clear Urine pH 6.5 Urine Specific [place] 1.020 Urine Protein 30 mg/dL (NEG-TRACE) Urine Glucose (UA) Negative mg/dL (NEG) Urine Ketones (Stick) Negative mg/dL (NEG) Urine Blood Negative (NEG) Urine Nitrite Negative (NEG) Urine Bilirubin Negative (NEG) Urine Urobilinogen Dipstick 0.2 mg/dL (0.2 mg/dL) Urine Leukocyte Esterase Negative (NEG) Urine RBC Rare /HPF (0-2) Urine WBC 0 /HPF (0-4) Urine Squamous Epithelial Cells Occ /LPF Urine Bacteria 0 /HPF (0-FEW) Urine Mucus Slight /LPF Troponin I Quantitative < 0.017 ng/mL (0.000-0.055) White Blood Count 6.6 x10^3/uL (4.0-11.0) Red Blood Count 4.23 x10^6/uL (4.30-5.70) Hemoglobin 13.3 g/dL (13.0-17.5) Hematocrit 39.6 % (39.0-53.0) Mean Corpuscular Volume 94 fL (79-100) Mean Corpuscular Hemoglobin 32 pg (25-35) Mean Corpuscular Hemoglobin Concent 34 g/dL (31-37) Red Cell Distribution Width 14.9 % (11.5-14.5) Platelet Count 83 x10^3/uL (140-400) Neutrophils (%) (Auto) 26 % (31-73) Lymphocytes (%) (Auto) 62 % (24-48) Monocytes (%) (Auto) 7 % (0-9) Eosinophils (%) (Auto) 4 % (0-3) Basophils (%) (Auto) 1 % (0-3) Neutrophils # (Auto) 1.7 x10^3uL (1.8-7.7) Lymphocytes # (Auto) 4.1 x10^3/uL (1.0-4.8) Monocytes # (Auto) 0.4 x10^3/uL (0.0-1.1) Eosinophils # (Auto) 0.3 x10^3/uL (0.0-0.7) Basophils # (Auto) 0.1 x10^3/uL (0.0-0.2) Sodium Level 141 mmol/L (136-145) Potassium Level 3.7 mmol/L (3.5-5.1) Chloride Level 106 mmol/L (98-107) Carbon Dioxide Level 31 mmol/L (21-32) Anion Gap 4 (6-14) Blood Urea Nitrogen 16 mg/dL (8-26) Creatinine 1.1 mg/dL (0.7-1.3) Estimated GFR (Cockcroft-Gault) 64.2 BUN/Creatinine Ratio 15 (6-20) Glucose Level 120 mg/dL (70-99) Calcium Level 8.3 mg/dL (8.5-10.1) Total Bilirubin 0.5 mg/dL (0.2-1.0) Aspartate Amino Transf (AST/SGOT) 31 U/L (15-37) Alanine Aminotransferase (ALT/SGPT) 29 U/L (16-63) Alkaline Phosphatase 78 U/L (46-116) Total Protein 5.9 g/dL (6.4-8.2) Albumin 3.0 g/dL (3.4-5.0) Albumin/Globulin Ratio 1.0 (1.0-1.7) Brief Hospital Course Mr. Hackett is a 81 old admit for back pain, was then r/o ACS, accel htn, req. treatement pt seen by Dr. jones, with follow back pain with rehab BP difficult to control, bradycardia at times, CT TEAM Recs "1. DC coreg. Continue with norvasc. ACEi/HCTZ and place on hydralazine. 2. check TTE" Discharge Information Condition at Discharge: Improved Follow Up: Weeks Disposition/Orders: D/C to Home Scheduled Amlodipine Besylate (Amlodipine Besylate), 10 MG PO DAILY, (Reported) Carvedilol (Carvedilol), 0.5 TAB PO BID, (Reported) Donepezil Hcl (Donepezil Hcl), 20 MG PO DAILYWSUP, (Reported) Fosinopril Sodium (Fosinopril Sodium), 1 TAB PO DAILY, (Reported) Hydrochlorothiazide (Hydrochlorothiazide Capsule ), 25 MG PO DAILY, (Reported ) Memantine Hcl (Namenda), 10 MG PO DAILYWSUP, (Reported) Multivitamin (Multi-Day Vitamins), 1 TAB PO DAILY, (Reported) [place]-3 Fatty Acids (Fish Oil), 300 MG PO BID, (Reported) Potassium Chloride (Klor-Con M20), 20 MEQ PO BIDWMEALS, (Reported) Pravastatin Sodium (Pravastatin Sodium), 1 TAB PO QHS, (Reported) Terazosin Hcl (Terazosin Hcl), 1 CAP PO QHS, (Reported) Miscellaneous Medications Aspirin (Aspirin), 81 MG PO, (Reported) Vit A,C & E/Lutein/Minerals (Ocuvite Tablet), 1 EACH PO, (Reported) Discontinued Medications Amlodipine Besylate (Amlodipine Besylate), 1 TAB PO DAILY, (Reported) Metformin Hcl (Metformin Hcl), 1 TAB PO BID, (Reported) Potassium Chloride (Potassium Chloride), 1 CAP PO DAILY, (Reported) Simvastatin (Simvastatin), 1 TAB PO DAILY, (Reported) Terazosin Hcl (Terazosin Hcl), 2 MG PO HS, (Reported) Patient Instructions Patient Instructions outpatient PT echo pending, january f/u CV team outpatient DC coreg hydralazine 50 TID to his pharmacy > 30 minutes HÉCTOR KINCAID MD Apr 11, 2017 12:47
[2017-04-11 13:03] LABS: CHOLESTEROL/HDL RATIO 3.1
--- NOTE | 2017-04-11 14:05 | RAD ---
INDICATION: Left arm pain and neck pain. TECHNIQUE: Sagittal T1, sagittal T2, sagittal STIR, axial T2, and axial T2 gradient sequences are provided. Sagittal T1 sequence was repeated. There is motion degradation, especially on the axial T2 gradient series. No comparison is available. FINDINGS: There is no malalignment. There is minimal endplate edema at C6-C7 most notably. There is no worrisome marrow lesion. There is narrowing of the interspace at C5-C6 and C6-C7. There is no cord signal abnormality confirmed in 2 planes. Degenerative findings by individual level will be estimated below, allowing for motion limitations. C2-C3: There is no canal or foraminal compromise. C3-C4: Disc osteophyte complex and uncinate process spurring are noted. There is buckling of ligamentum flavum and mild facet hypertrophy. There is cord flattening. Midline AP diameter of the thecal sac is narrowed to 6 mm. There is moderate foraminal narrowing. C4-C5: Disc osteophyte complex and uncinate process spurring are noted. There is buckling of ligamentum flavum. Midline AP diameter of the thecal sac is narrowed to 6 mm with cord flattening but no definite cord hyperintensity. Foraminal narrowing is at least moderate on the right and [id number] on the left. C5-C6: Disc osteophyte complex and uncinate process spurring are noted. There is buckling of ligamentum flavum. Midline AP diameter of the thecal sac is narrowed to 6-7 mm. There is mild cord flattening but no cord hyperintensity. Foraminal narrowing is probably high-grade. C6-C7: Disc osteophyte complex and uncinate process spurring are noted. There is buckling of ligamentum flavum. There is mild canal stenosis, midline AP diameter of the thecal sac approximately 8 mm. Foraminal narrowing is at least moderate, probably severe on the right. C7-T1: There is facet hypertrophy with mild foraminal narrowing. IMPRESSION: 1. 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 Multiple levels of high-grade foraminal narrowing also suspected. 2. Motion degradation. Estimates of the degree of canal and foraminal compromise are provided above. Consider post myelogram CT prior to any intervention. Electronically signed by: Yung Rangel MD (04/11/2017 2:02 PM) [id number]
[2017-04-11 14:14] VITALS: BP 177/71
--- NOTE | 2017-04-11 17:00 | CARD ---
APPROVED REPORT EXAM: Two-dimensional and M-mode echocardiogram with Doppler and color Doppler. Other Information Quality : Average Rhythm : NSR INDICATION Hypertension/HCVD 2D DIMENSIONS RVDd2.8 (2.9-3.5cm)Left Atrium(2D)3.6 (1.6-4.0cm) IVSd1.3 (0.7-1.1cm)Aortic Root(2D)2.9 (2.0-3.7cm) LVDd5.0 (3.9-5.9cm)LVOT Diameter2.1 (1.8-2.4cm) PWd1.3 (0.7-1.1cm)LVDs3.7 (2.5-4.0cm) FS (%) 26.2 %SV60.2 ml LVEF(%)51.1 (>50%) Aortic Valve AoV Peak Luis Manuel.155.0cm/sAoV VTI35.9cm AO Peak GR.9.6mmHgLVOT Peak Luis Manuel.100.9cm/s LVOT VTI 24.04cmAO Mean GR.5mmHg ELIZABETH (VMAX)2.68ak9AIL (VTI)2.26cm2 Mitral Valve MV E Cfzdjhem25.0cm/sMV DECEL [id number] MV A Bkwzqumh419.1cm/sMV E Mean Gr.1mmHg MV INI86tdT/A Ratio0.7 MV A [id number] (PHT)2.71cm2 TDI E/Lateral E'8.0E/Medial E'10.2 Tricuspid Valve TR P. Veceoqtu393wm/sRAP [id number] TR Peak Gr.16oqCgDIGZ91gxVq Pulmonary Vein S1 Ngmxbnfj19.6cm/sD2 Bsqnjfvi58.4cm/s LEFT VENTRICLE The left ventricle is normal size. There is borderline to mild concentric left ventricular hypertroph y. Left ventricle systolic function is normal. The Ejection Fraction is 50-55%. There is normal LV se gmental wall motion. Tissue Doppler imaging reveals mild left ventricular diastolic dysfunction. [place] smitral Doppler flow pattern is Grade I-abnormal relaxation pattern. There is no ventricular septal d efect visualized. RIGHT VENTRICLE The right ventricle is normal size. The right ventricular systolic function is normal. ATRIA The left atrium size is normal. The right atrium size is normal. The interatrial septum is intact wit h no evidence for an atrial septal defect or patent foramen ovale as noted on 2-D or Doppler imaging. AORTIC VALVE The aortic valve is trileaflet. The non coronary cusp is moderately calcifed. Doppler and Color Flow revealed no significant aortic regurgitation. There is no significant aortic valvular stenosis. MITRAL VALVE Mitral annular calcification is mild to moderate. There is no mitral valve stenosis. Doppler and [place] r Flow revealed trace mitral regurgitation. TRICUSPID VALVE The tricuspid valve is normal in structure and function. Doppler and Color Flow revealed trace tricus pid regurgitation. The PA pressure was estimated at 30 mmHg. There is no tricuspid valve stenosis. PULMONIC VALVE The pulmonic valve is not well visualized. Doppler and Color Flow revealed no pulmonic valvular regur gitation. There is no pulmonic valvular stenosis. GREAT VESSELS The aortic root is normal in size. The ascending aorta is normal in size. Normal pulmonary venous sloane w (Doppler). The IVC is normal in size and collapses >50% with inspiration. PERICARDIAL EFFUSION There is no evidence of significant pericardial effusion. Critical Notification Critical Value: No <Conclusion> The left ventricle is normal size. Left ventricle systolic function is normal. The Ejection Fraction is 50-55%. There is borderline to mild concentric left ventricular hypertrophy. There is no significant aortic valvular stenosis. Doppler and Color Flow revealed no significant aortic regurgitation. Doppler and Color Flow revealed trace mitral regurgitation. Doppler and Color Flow revealed trace tricuspid regurgitation. The PA pressure was estimated at 30 mmHg.
[2017-04-11] MEDS: MEMANTINE 10 MG TABLET. PO SCH (17:46)
[2017-04-11] MEDS: DONEPEZIL HCL 10 MG TABLET. PO SCH (17:47)
--- NOTE | 2017-04-11 23:07 | CONS ---
DATE OF CONSULTATION: 04/11/2017 LOCATION: Room 202 ATTENDING PHYSICIAN: Dr. Lassiter. HISTORY OF PRESENT ILLNESS: This is an 81-year-old male admitted through the Emergency Room on 04/10/2017, with upper back area pain. He apparently is having pain in his neck and upper back going on for almost a year or so. The patient had tried chiropractic treatment in the past without much help. He is not going to the chiropractor anymore. He had some dementia problems, lives with his . The patient bowls on Tuesdays and as a hobby going on a long time. He denies any specific injury that caused his pain. The patient had radiological studies, which failed to reveal any acute abnormalities. He denies any numbness or tingling sensation in the extremities. PHYSICAL EXAMINATION: Today revealed an elderly male. He is alert, oriented to place and person, follows commands appropriately, moves all 4 extremities voluntarily where he had 4+/5 grade muscle strength, deep tendon reflexes are decreased overall. He had equal perception of touch and pinprick sensation bilaterally. He has some stiffness of his neck. He had tenderness to palpation over left cervical paraspinal and upper thoracic paraspinal muscles and also over left lower thoracic paraspinal muscles. Straight leg raising test is negative bilaterally. He is independent with his mobility. No significant cervical or thoracic paraspinal muscle spasm was noted at this time. ASSESSMENT: An elderly male with chronic neck and shoulder area pain without any clinical evidence of ongoing cervical or thoracic radiculopathy to rule out degenerative disk disease and degenerative joint disease of cervical vertebrae. He also presents with clinical evidence of peripheral neuropathy. The patient is with known dementia. RECOMMENDATIONS: To obtain MRI scan of his cervical vertebrae to make sure he does not have any significant disk problems. To try him with physical modalities, to arrange for outpatient physical therapy. Hopefully, home with outpatient followup in physical therapy when medically stable hopefully later on today. Dr. Lassiter, I appreciate asking me to participate in the care of this interesting patient. I will be glad to follow him with you as needed for the rehabilitation. LARISA CROSS MD DR: FERMÍN/paul JOB#: [id number] / [id number] ERICA Garcia MD
== END 2017-04-11 18:25 | disposition home or self-care (01) ==
LOC: ER 02:08 → INTOOBSV 04:53 → 2 NORTH 04:53
PROVIDERS: ADMIT Internal Medicine; ATTEND Internal Medicine
DX: I10 Essential (primary) hypertension (principal); M54.5 Low back pain; M54.2 Cervicalgia; E11.9 Type 2 diabetes mellitus without complications; E78.00 Pure hypercholesterolemia, unspecified; F03.90 Unspecified dementia, unspecified severity, without behavioral disturbance, psychotic disturbance, mood disturbance, and anxiety; E78.5 Hyperlipidemia, unspecified; R00.1 Bradycardia, unspecified; M54.89 Other dorsalgia; D69.6 Thrombocytopenia, unspecified; I38 Endocarditis, valve unspecified; G62.9 Polyneuropathy, unspecified; M25.519 Pain in unspecified shoulder; M19.042 Primary osteoarthritis, left hand; M19.041 Primary osteoarthritis, right hand; I16.0 Hypertensive urgency; K76.89 Other specified diseases of liver; Z87.891 Personal history of nicotine dependence; Z86.718 Personal history of other venous thrombosis and embolism; Z82.49 Family history of ischemic heart disease and other diseases of the circulatory system
CPT/HCPCS: 36415; 71275; 72080; 72141; 80048; 80053; 80061; 80076; 81001; 83880; 84484; 85007; 85027; 93005; 93306; 96361; 96372; 96374; 96375; 96376; 97161; 97165; 99285; G0378; J0360; J1650; J2270; J3010; J7030; Q0163; Q9967; G0379

== ENCOUNTER → 2017-05-25 | Outpatient (CLI) | payer MEDICARE ==
[~2017-05-25] MED LIST changes: +BUPIVACAINE MPF 0.25% 10 ML VIAL. ONE; +HYDR-2869 PO; +MEMA10TA PO; +POTA20TA4 PO; +PRAV40TA2 PO; +TERA5CAP3 PO; +methylPREDNISolone ACETATE 40 MG/ML VIAL. ONE
--- NOTE | 2017-05-25 15:53 | PAIN ---
DATE OF SERVICE: 05/25/2017 CHIEF COMPLAINT: Upper neck and upper back pain. HISTORY OF PRESENT ILLNESS: This is an 81-year-old male with history of pain for about a year, increasing in the base of the neck, more on the right shoulder and upper extremity, radiating to the anterior aspect of the biceps on occasion, but not at all the times. The patient reports mainly the pain is limited to the neck and mostly on the right side. Becomes a more constant aching pain, that is sharp. Can be dull and throbbing, shooting, stabbing, but it is worse with activity, moving of the right upper extremity and the neck, but is better with lying down. He reports he sleeps well at night. It does not awaken him from sleep. It has not affected bowel or bladder control or his ability to walk. The patient is an avid bowler and bowls in the league, with good results, and he reports the pain does not bother him significantly when he is bowling, but right afterwards, it is quite painful for the rest of the evening. The patient reports his disability rating from 0-10, 10 being the worst, it is a 7 with family and home responsibilities and social activity, 2 with recreation and sexual behavior, and 0 with self care and life support activities. The patient has not tried any current physical therapies or any other treatments, besides chiropractic treatment, which he reports is somewhat helpful in helping the muscles relax in his neck. The patient did have MRI scan of the cervical spine dated 04/11/2017, showing degenerative changes in the cervical spine with high-grade canal stenosis from C3-C4 through C5-C6, in multiple levels, high grade foraminal narrowing. Also suspected motion degradation, but estimates a degree of canal and foraminal compromise at C5-C6 to about 6 to 7 mm; at C6-C7 at about 8 mm of foraminal narrowing, at least moderate, more severe on the right at C6-C7; mild cord flattening at C5-C6, with foraminal, probably high grade narrowing. The patient reports again no loss of motor function in the upper extremities or easy fatigability. PAST MEDICAL HISTORY: Significant for hearing loss; hearing aids; type 2 diabetes, diet controlled; hypertension; dementia; and early Alzheimer disease. PREVIOUS SURGERY: Include cholecystectomy and hemorrhoidectomy. CURRENT MEDICATIONS: Include omega 3 oils daily, vitamins, amlodipine, Ocuvite, aspirin, hydrochlorothiazide, fosinopril, vitamin A and C, and hydralazine. Also, terazosin, pravastatin, Namenda, Klor-Con, donepezil. ALLERGIES: The patient has no known drug allergies. FAMILY HISTORY: Significant for heart disease and diabetes as well as Alzheimer disease. SOCIAL HISTORY: The patient does not smoke. Drinks about 3 beers a day on average. Is , lives with his spouse. He is currently retired. Again enjoys bowling. He lives locally in [place], [place]. REVIEW OF SYSTEMS: The patient's review of systems is positive for those items mentioned in history of present illness. All systems reviewed and otherwise negative. It is complete, full and well documented on the patient's chart. PHYSICAL EXAMINATION: VITAL SIGNS: Today the patient's blood pressure is 154/53, pulse 72, respirations 18, temperature 97.7 degrees Fahrenheit, height 5 feet 7 inches, weight 182 pounds. GENERAL: The patient is awake, alert, oriented, appropriate, has very pleasant demeanor. HEENT: Head shows normocephalic, atraumatic. Extraocular movements are intact and symmetrical. Oral cavity shows mucous membranes moist and pink. Dentition is intact. NECK: Shows anterior throat supple, without palpable lymphadenopathy noted. Swallow reflex is symmetrical. CHEST: Shows normal on inspection. Breath sounds are clear to auscultation bilaterally. HEART: Shows S1 and S2 clear. No murmurs auscultated. ABDOMEN: Soft, nontender, nondistended. No palpable organomegaly. There is no rebound or guarding demonstrated. BACK: The patient's back shows spine grossly in midline. With inspection of the cervical paraspinous musculature, shows symmetrical with inspection, without significant atrophy-hypertrophy. The patient shows significant tenderness, however, with palpation over the aspect of the right trapezius and inferior cervical paraspinous into the trapezius musculature, extending laterally, with very firm, very rope-like tender musculature noted in this region. Very firm, but without significant radiation on palpation. Left side is supple and nontender, including the cervical paraspinous and trapezius musculature throughout. The patient's suprascapular and infrascapular regions are nontender, as is the rhomboid and thoracic paraspinous musculature bilaterally as well, without abnormalities. EXTREMITIES: Upper extremities showed deep tendon reflexes 2+ in the biceps and triceps tendons. Motor exam is strong with pricing director strength rated at 5/5 as is biceps and triceps flexion. Peripheral pulses are 2+ radial distribution. No peripheral edema is noted. No clubbing, no cyanosis. Upper extremities are warm and dry to touch, equal in color and appearance. Shoulder shrug is strong and intact, without loss of strength on resistance and without pain reported, as is abduction of the shoulder to 90 degrees without pain reported and without loss of strength on resistance. IMPRESSION: 1. This is an 81-year-old male with about one year history of increasing pain in the base of the neck, radiating to the right shoulder and upper extremity. 2. MRI scan of cervical spine as noted. 3. Hypertension. 4. Type 2 diabetes. 5. Early dementia. PLAN: Options were discussed with the patient and the patient's spouse who accompanies to visit today. We will proceed with trigger point injection of the right trapezius, with risks discussed including, but not limited to bleeding, infection, possibility of intravascular injection sequelae, pneumothorax, side effects of steroid medications, spread of local anesthetic and numbness and poor results regarding pain control. The patient understands and wishes to proceed. The patient will return to clinic in approximately 2 weeks for followup. Was counseled on return appointment, activity level and side effects to be aware of. DIAGNOSIS: Cervicalgia with Myofascial pain. PROCEDURE: Trigger point injection of right trapezius using sterile prep and drape under local anesthetic. MEDICATIONS INJECTED: Total 40 mg Depo-Medrol plus total of 4 mL of 0.25% bupivacaine after negative aspiration. CONDITION AT DISCHARGE: Stable. The patient tolerated procedure well, had no complications. LUIS ARMANDO WHEELER MD DR: CHAZ/paul JOB#: [id number] / [id number]
== END | disposition home or self-care (01) ==
LOC: PNCL 08:54
PROVIDERS: ATTEND Anesthesiology
DX: M79.1 Myalgia (principal); I10 Essential (primary) hypertension; E11.9 Type 2 diabetes mellitus without complications; F03.90 Unspecified dementia, unspecified severity, without behavioral disturbance, psychotic disturbance, mood disturbance, and anxiety; H91.90 Unspecified hearing loss, unspecified ear; F17.200 Nicotine dependence, unspecified, uncomplicated; Z90.49 Acquired absence of other specified parts of digestive tract; Z83.3 Family history of diabetes mellitus; Z86.69 Personal history of other diseases of the nervous system and sense organs; Z86.39 Personal history of other endocrine, nutritional and metabolic disease; Z72.89 Other problems related to lifestyle
CPT/HCPCS: 20552; J1030; J3490

== ENCOUNTER → 2017-06-08 | Outpatient (CLI) | payer MEDICARE ==
[~2017-06-08] MED LIST changes: -BUPIVACAINE MPF 0.25% 10 ML VIAL. ONE; +IOHEXOL 180 MG/ML 10 ML VIAL. ONE; +methylPREDNISolone ACETATE 80 MG/ML VIAL. ONE
--- NOTE | 2017-06-09 03:20 | PAIN ---
DATE OF SERVICE: 06/08/2017 DIAGNOSES: Cervicalgia with cervical degenerative disk disease and cervical radiculopathy. HISTORY OF PRESENT ILLNESS: The patient is an 81-year-old male who returns for followup status post initial evaluation and trigger point injections in the trapezius on the right. The patient reports no significant difference in the pain, still significant pain radiating from the base of the neck into the right shoulder and into the top of the upper extremity on the lateral aspect of the shoulder as well on the right side. The patient reports it is a 9 on a scale of 10 at its worst, is average of 9 and at its least maybe of 8 on a scale of 10. The patient reports a sharp, aching, shooting, radiating, again worse on the right side with some pain in the base of the neck as well and causing some headaches occasionally but not every day. The patient reports it does not awaken him from sleep at night. He sleeps well about 8 hours a night. It is worse when he is up and around. First thing in the morning, it begins hurting and aching, as the day goes on. It radiates into the shoulder and into the upper extremity on the right side. The patient reports no new motor or sensory deficits, no new bowel or bladder incontinence or other complaints. PHYSICAL EXAMINATION: VITAL SIGNS: Today, the patient's blood pressure is 163/54, pulse 67, respirations 18, temperature 97.6 degrees Fahrenheit, height is 5 feet 7 inches, weighs 185 pounds. GENERAL: The patient is awake, alert, oriented, appropriate, very pleasant demeanor. HEENT: Head shows normocephalic, atraumatic. Extraocular movements are intact, symmetrical. Oral cavity: Mucous membranes moist and pink. Dentition is intact. NECK: Shows anterior throat supple without palpable lymphadenopathy noted. Swallow reflex is symmetrical. CHEST: Shows normal on inspection. Breath sounds are clear to auscultation bilaterally. HEART: Shows S1 and S2 clear. No murmurs auscultated. ABDOMEN: Obese, soft, nontender, nondistended, well-healed midline surgical scar is again noted. BACK: Shows spine grossly in midline. Cervical paraspinous musculature shows symmetrical on inspection with palpation shows some moderate tenderness in the inferior aspect of the cervical paraspinous muscles as well as the superior medial trapezius on the right only, very tender, very firm, again with some rope-like musculature in the trapezius musculature on the right side with tenderness on palpation, but without specific radiation. EXTREMITIES: Upper extremities show deep tendon reflexes 2+ in the biceps and triceps tendons. Motor exam is strong with skid worker strength rated at 5/5 as is biceps and triceps flexion. Peripheral pulses are 2+ radial distribution. No peripheral edema is noted. Options were discussed with the patient and the patient's old chart was reviewed as his current medication regimen and updated. Current review of systems is updated today as well. We will proceed with a cervical epidural steroid injection today with fluoroscopic guidance. Risks were discussed including but not limited to bleeding, infection, possibility of epidural hematoma and subsequent neurologic compromise, dural puncture, headaches, spinal cord and/or nerve damage, side effects of steroid medication and poor results regarding pain control. The patient understands and wishes to proceed. The patient will return to clinic in approximately 2 weeks for followup, was counseled on return appointment, activity level and side effects to be aware of. DIAGNOSIS: Cervical radiculopathy with cervical degenerative disk disease and cervicalgia. PROCEDURE: Cervical epidural steroid injection translaminar approach at C6-C7 level using C-arm fluoroscopic guidance under sterile prep and drape using local anesthetic. MEDICATIONS INJECTED: A total of 120 mg Depo-Medrol plus 5 mL preservative-free normal saline and 2 mL Isovue for contrast. CONDITION AT DISCHARGE: Stable. The patient tolerated procedure well, had no complications. LUIS ARMANDO WHEELER MD DR: CHAZ/paul JOB#: [id number] / [id number]
== END | disposition home or self-care (01) ==
LOC: PNCL 13:04
PROVIDERS: ATTEND Anesthesiology
DX: M50.123 Cervical disc disorder at C6-C7 level with radiculopathy (principal); I10 Essential (primary) hypertension; F17.200 Nicotine dependence, unspecified, uncomplicated; E11.9 Type 2 diabetes mellitus without complications; Z86.69 Personal history of other diseases of the nervous system and sense organs; Z90.49 Acquired absence of other specified parts of digestive tract; Z86.39 Personal history of other endocrine, nutritional and metabolic disease; Z72.89 Other problems related to lifestyle
CPT/HCPCS: 62321; J1030; J1040

== ENCOUNTER → 2017-06-22 | Outpatient (CLI) | payer MEDICARE ==
[~2017-06-22] MED LIST changes: +BUPIVACAINE MPF 0.25% 10 ML VIAL. ONE; -methylPREDNISolone ACETATE 40 MG/ML VIAL. ONE
--- NOTE | 2017-06-22 17:40 | PAIN ---
DATE OF SERVICE: 06/22/2017 DIAGNOSES: Cervicalgia with cervical spondylosis and degenerative disk disease. HISTORY OF PRESENT ILLNESS: The patient is an 81-year-old male who returns for followup status post trigger point injections, cervical distribution of the paraspinous musculature as well as cervical epidural steroid injection, each with only very minimal decrease in pain. The patient reports still significant pain in the right side of the neck with less radiation down to the right arm, but still significant pain in the right neck, worse with extension, right rotation as well as forward flexion. The patient reports it has been waking him from sleep at night occasionally, but not every night. It is worse with walking and standing, change in positions, looking over to his right or his left as well as extension of the neck, rates it a 9 on a scale of 10 at all times least, worst and average. The patient reports no new loss of motor function, still reports pain is aching and sharp, alternating with dull pain, not necessarily causing headaches, but significant pain in the right side of the neck at all times. The patient had been evaluated by Neurosurgery with indications for cervical fusion. The patient is wishing to avoid surgery if possible. The patient reports no new motor or sensory deficits or other complaints. PHYSICAL EXAMINATION: VITAL SIGNS: Today, blood pressure is 152/55, pulse 61, respirations are 18, temperature is 97.8 degrees Fahrenheit, height is 5 feet 7 inches, weight is 185 pounds. GENERAL: The patient is awake, alert, oriented, appropriate, very pleasant demeanor. HEENT: Head shows normocephalic, atraumatic. Extraocular movements are intact and symmetrical. Oral cavity shows mucous membranes moist and pink. Dentition is intact. NECK: Shows anterior throat supple. Swallow reflex is symmetrical. CHEST: Shows normal on inspection. Breath sounds are clear to auscultation bilaterally. HEART: Shows S1 and S2 clear. ABDOMEN: Soft, nontender, nondistended. BACK: Shows spine grossly midline. Cervical paraspinous musculature shows symmetrical with inspection with palpation, significant tenderness over the right-sided upper and middle distribution of the cervical paraspinous musculature as well as the deeper tissues with further deeper palpation shows more significant pain in this region. It is nontender on the left side with normal musculature palpation on the left only. The patient does show good rotational motion of cervical spine, both laterally greater than 45 degrees and pain reported with right lateral rotation, but not with left lateral rotation. Full extension, full forward flexion was performed, again with pain reported with both these maneuvers on the right side only in the same area as palpable pain but not as severe as with palpation. EXTREMITIES: Upper extremities show deep tendon reflexes at 2+ in the biceps and triceps tendons. Motor exam is strong with roll handler strength rated at 5/5 as is biceps and triceps flexion. Peripheral pulses are 2+ radial distribution bilaterally. No peripheral edema is noted. Options were discussed with the patient and his spouse who accompanies him this visit today. We will proceed with right-sided cervical facet injections at the C3, C4 and C5 levels with fluoroscopic guidance. Risks were again discussed including, but not limited to bleeding, infection, possibility of intravascular injection sequelae, epidural hematoma, subsequent neurologic compromise, dural punctures, headaches, spinal cord and/or nerve damage, side effects of steroid medications, exposure to fluoroscopy and poor results regarding pain control. The patient understands and wishes to proceed. The patient will return to clinic in approximately 2 weeks for followup. He was counseled as to return appointment, activity level and side effects to be aware of. DIAGNOSIS: Cervical spondylosis with cervicalgia. PROCEDURE: Right-sided cervical facet median branch blocks at C3-C4 and C4-C5 levels using C-arm fluoroscopic guidance under sterile prep and drape using local anesthetic. MEDICATIONS INJECTED: A total of 80 mg of Depo-Medrol plus 3 mL of 0.25% bupivacaine after negative aspiration at each level and 1.5 mL total of Isovue contrast. CONDITION ON DISCHARGE: Stable. The patient tolerated procedure well, had no complications. LUIS ARMANDO WHEELER MD DR: CHAZ/paul JOB#: [id number] / [id number]
== END | disposition home or self-care (01) ==
LOC: PNCL 13:56
PROVIDERS: ATTEND Anesthesiology
DX: M47.812 Spondylosis without myelopathy or radiculopathy, cervical region (principal); M50.31 Other cervical disc degeneration, high cervical region; I10 Essential (primary) hypertension; E11.9 Type 2 diabetes mellitus without complications; F17.200 Nicotine dependence, unspecified, uncomplicated; Z86.69 Personal history of other diseases of the nervous system and sense organs; Z90.49 Acquired absence of other specified parts of digestive tract; Z72.89 Other problems related to lifestyle
CPT/HCPCS: 64490; 64491; J1040; J3490; 64492

== ENCOUNTER → 2017-07-08 | Outpatient (CLI) | payer MEDICARE ==
[~2017-07-08] MED LIST changes: -BUPIVACAINE MPF 0.25% 10 ML VIAL. ONE; -IOHEXOL 180 MG/ML 10 ML VIAL. ONE; +MELO15TA23 PO; -methylPREDNISolone ACETATE 80 MG/ML VIAL. ONE
--- NOTE | 2017-07-08 13:46 | PAIN ---
DATE OF SERVICE: 07/08/2017 DIAGNOSES: 1. 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 2. Myofascial pain. HISTORY OF PRESENT ILLNESS: The patient is an 81-year-old male who returns for followup status post cervical facet injections at C3, C4 and C5 level on the right side. The patient reports about 99% improvement in pain in his neck and his shoulder. The patient reports he is very pleased. His pain is a 2 on a scale of 10 at its absolutely worst. Has been sleeping well at night, increasing activity with greater ease and comfort. Has occasional tingling sensation in the right neck and shoulder into the right lateral deltoid, but only very infrequently and is sleeping well at night despite the tingling. The patient reports the tingling is not there all the time, it is there only intermittently and reports no new motor or sensory deficits, no new changes. Is very pleased with his progress thus far. PHYSICAL EXAMINATION: VITAL SIGNS: Today, his blood pressure is 151/60, pulse 67, respirations 18, temperature 97.6 degrees Fahrenheit, height is 5 feet 9 inches and weight is 184 pounds. GENERAL: The patient is awake, alert, oriented, appropriate, very pleasant demeanor. HEENT: Head shows normocephalic, atraumatic. Extraocular movements are intact, symmetrical. Oral cavity, mucous membranes are moist and pink. Dentition is intact. NECK: Shows anterior throat supple without palpable lymphadenopathy noted. Swallow reflex is symmetrical. CHEST: Shows normal on inspection. Breath sounds are clear to auscultation bilaterally. HEART: Shows S1 and S2 clear. ABDOMEN: Soft, nontender, nondistended. No palpable organomegaly is noted. BACK: Shows spine grossly midline. Cervical paraspinous musculature shows some symmetry with inspection, on palpation shows some very minor tenderness in the right inferior aspect of the cervical paraspinous muscles into the superior medial trapezius, but again only with deep palpation without radiation. The patient has full rotational motion of cervical spine, both laterally greater than 45 degrees, close to 90 degrees, right and left lateral rotation as well as extension and full forward flexion without difficulty or pain reported. EXTREMITIES: The patient's upper extremities show deep tendon reflexes at 2+ in the biceps and triceps tendons. Motor exam is strong with 5/5 line manager strength, biceps and triceps flexion, also shoulder shrug as well as abduction of shoulder is 90 degrees without loss of strength on resistance and without pain reported. Peripheral pulses are 2+ radial distribution bilaterally. No peripheral edema is noted. Options were discussed with the patient and the patient's old chart was reviewed as his current medication regimen updated. Current review of systems is updated today as well and we will hold on any further injections at this time as the patient is doing quite a bit better. We will try Medrol Dosepak to see if this may decrease the tingling sensation as he does have some minor leftover paraesthesia in the right shoulder upper extremity. The patient was given instruction as well as side effects to be aware of with the medication and we will follow up on as needed basis at this time. LUIS ARMANDO WHEELER MD DR: CHAZ/paul JOB#: [id number] / [id number]
== END | disposition home or self-care (01) ==
LOC: PNCL 10:04
PROVIDERS: ATTEND Anesthesiology
DX: M50.30 Other cervical disc degeneration, unspecified cervical region (principal); M47.892 Other spondylosis, cervical region; R20.2 Paresthesia of skin
CPT/HCPCS: G0463

== ENCOUNTER → 2017-07-27 | Outpatient (CLI) | payer MEDICARE ==
[~2017-07-27] MED LIST changes: +BUPIVACAINE MPF 0.25% 10 ML VIAL. ONE; +IOHEXOL 180 MG/ML 10 ML VIAL. ONE; +methylPREDNISolone ACETATE 80 MG/ML VIAL. ONE
--- NOTE | 2017-07-28 02:55 | PAIN ---
DATE OF SERVICE: 07/27/2017 PROGRESS NOTE FOR PAIN CLINIC DIAGNOSES: 1. Cervicalgia. 2. Cervical degenerative disk disease with cervical spondylosis. HISTORY OF PRESENT ILLNESS: The patient is an 81-year-old male who returns for followup status post cervical facet medial branch blocks on 06/22/2017. The patient did very well with this with very good results near 100%. The patient reports the pain returned about a week ago in the right side of the neck radiating to the shoulder radiating to his right side of the face, worse with rotational motion to the right and extension as well as forward flexion of the cervical spine. The patient reports it is becoming more noticeable. The pain wore off fairly quickly, not a result of any new injury or accident that he is aware of. The patient reports it is all on the right side, occasional radiation to the right shoulder as well, and rates it as an 8 on a scale of 10 at its worst, at its average and at least and is an 8 today. The patient reports no new motor or sensory deficits, but still significant pain returning like it was previously. The patient reports is tingling, dull, tight, becoming more constant with some shooting radiating pain into the right shoulder and into the neck on the right side as well. The patient reports no new deficits. PHYSICAL EXAMINATION: VITAL SIGNS: The patient's blood pressure 155/62, pulse 67, respirations 16, temperature 97.7 degrees Fahrenheit, weight is 186 pounds. GENERAL: The patient is awake, alert, oriented, appropriate, very pleasant demeanor. HEENT: Head shows normocephalic, atraumatic. Extraocular movements are intact and symmetrical. Oral cavity shows mucous membranes moist and pink. Dentition is intact. NECK: Shows anterior throat supple without palpable lymphadenopathy noted. Swallow reflex is symmetrical. CHEST: Normal on inspection. Breath sounds are clear to auscultation bilaterally. HEART: Shows S1 and S2 clear. No murmurs auscultated. ABDOMEN: Soft, nontender, nondistended. No palpable organomegaly is noted. No rebound or guarding demonstrated. BACK: Shows spine grossly in the midline. Cervical lordotic curvature, thoracic kyphotic curvature, and lumbar lordotic curvature are all normal in appearance. Cervical paraspinous muscle shows symmetrical on inspection, with palpation shows some moderate tenderness, more on the right than the left, but bilaterally diffusely. The patient reports no difficulty with rotational motion and has good rotational motion with pain reported in the past 45 degrees to the right and with extension, also with forward flexion and rotation to the right. He has got significant pain in the base of the neck, shoulder and right side of the face. EXTREMITIES: Upper extremities show deep tendon reflexes 2+ in the biceps and triceps tendons. Motor exam is strong with 5/5 residential green building designer strength, biceps and triceps flexion. Peripheral pulses are 2+ radial bilaterally. Options were discussed with the patient, the patient's old chart was reviewed as his current medication regimen updated and current review of systems updated today as well, and we will proceed with repeat for right-sided cervical facet medial branch blocks at the C3-C4, C4-C5 and C5-C6 levels. Risks were again discussed including, but not limited to bleeding, infection, possibility of intravascular injection sequelae, epidural hematoma and subsequent neurologic compromise, dural punctures, headaches, spinal cord and/or nerve damage, side effects of steroid medication and exposure to fluoroscopy as well as poor results regarding pain control. The patient understands and wishes to proceed. The patient will return to the clinic in approximately 2 weeks for followup. He was counseled as to return appointment, activity level and side effects to be aware of. DIAGNOSES: Cervical spondylosis with cervical degenerative disk disease and cervicalgia. PROCEDURE: Cervical right-sided facet medial branch blocks at C3-C4, C4-C5, C5-C6 levels using C-arm fluoroscopic guidance under sterile prep and drape using local anesthetic. MEDICATIONS INJECTED: A total of 80 mg of Depo-Medrol plus total of 4 mL of 0.25% bupivacaine after negative aspiration at each level and total of 2 mL of Isovue for contrast. CONDITION AT DISCHARGE: Stable. The patient tolerated procedure well, had no complications. LUIS ARMANDO WHEELER MD DR: CHAZ/paul JOB#: [id number] / [id number]
== END ==
LOC: PNCL 14:09
PROVIDERS: ATTEND Anesthesiology
DX: M47.812 Spondylosis without myelopathy or radiculopathy, cervical region (principal); M50.322 Other cervical disc degeneration at C5-C6 level; Z98.890 Other specified postprocedural states; F03.90 Unspecified dementia, unspecified severity, without behavioral disturbance, psychotic disturbance, mood disturbance, and anxiety; I10 Essential (primary) hypertension; Z90.49 Acquired absence of other specified parts of digestive tract; E11.9 Type 2 diabetes mellitus without complications; F17.200 Nicotine dependence, unspecified, uncomplicated
CPT/HCPCS: 64490; 64491; 64492; J1040; J3490

== ENCOUNTER → 2017-08-12 | Outpatient (CLI) | payer MEDICARE ==
[~2017-08-12] MED LIST changes: -IOHEXOL 180 MG/ML 10 ML VIAL. ONE; +methylPREDNISolone ACETATE 40 MG/ML VIAL. ONE; -methylPREDNISolone ACETATE 80 MG/ML VIAL. ONE
--- NOTE | 2017-08-12 18:32 | PAIN ---
DATE OF SERVICE: 08/12/2017 DIAGNOSES: 1. 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 2. Myofascial pain. 3. Cervical radiculopathy. HISTORY OF PRESENT ILLNESS: The patient is an 81-year-old male who returns for followup status post right-sided medial branch facet joint injections at the C3-C4, C4-C5 and C5-C6 levels with good results. The patient reports he did very well especially after the first injections, has about 99% improvement. After last injections, he did well again but is having some residual pain in the inferior aspect of the right side of the neck causing some tingling onto the right side of the face as well. The patient reports it is somewhat different. He has had good mobility with his neck, but the pain is worse, more with sitting still or concentrating on driving or watching television with his neck in 1 position for longer than about 20 minutes. The patient reports it as tingling, is painful with some sharp dull tight pain as well, but not shooting or radiating into the right upper extremity at this time. The patient reports his pain is a 5 at its worse, 4 on average and a 3 at its least, is a 3 today. The patient reports no new motor or sensory deficits, no new bowel or bladder incontinence or other complaints. The patient sleeps well through the night. It does not awaken him from sleep. PHYSICAL EXAMINATION: VITAL SIGNS: Shows blood pressure 140/57, pulse 74, respirations 18, temperature 97.5 degrees Fahrenheit, height is 5 feet 7 inches, weighs 183 pounds. GENERAL: The patient is awake, alert, oriented, appropriate, very pleasant demeanor. The patient accompanied by his spouse. HEENT: Shows normocephalic, atraumatic. Extraocular movements are intact, symmetrical. Oral cavity: Mucous membranes moist and pink. Dentition is intact. NECK: Shows anterior throat supple without palpable lymphadenopathy noted. Swallow reflex is symmetrical. CHEST: Shows normal with inspection. Breath sounds clear to auscultation bilaterally. HEART: Shows S1, S2 clear. BACK: The patient's back shows spine grossly in midline. Cervical lordotic curvature is maintained. On inspection cervical paraspinous muscular looks symmetrical. On palpation shows significant tenderness and very firm rope-like musculature in the middle and inferior aspect of the right cervical paraspinous musculature into the superior medial trapezius. Left side is supple and nontender. The patient shows no radiation of pain on the right side, but significant pain with palpation only, even some moderate to light palpation in the inferior aspect of the cervical paraspinous muscles and superior medial trapezius on the right. The patient has full rotational motion of the cervical spine without difficulty without pain reported with extension, flexion, right and left lateral rotation past 45 degrees without difficulty. EXTREMITIES: Upper extremities show deep tendon reflexes at 2+ in the biceps, triceps tendons. 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 Options were discussed with the patient. The patient's old chart was reviewed. His current medication regimen updated. Current review of systems is updated today as well. We will proceed with trigger point injections of the right cervical paraspinous musculature as well as the right trapezius. Risks were again discussed including, but not limited to bleeding, infection, possibility of intravascular injection and sequelae, spread of local anesthetic and numbness, side effects of steroid medication and poor results regarding pain control. The patient understands and wished to proceed. The patient will return to clinic in approximately 2 weeks for followup, was counseled on return appointment and activity level and side effects to be aware of. DIAGNOSES: Cervicalgia with cervical degenerative disease, spondylosis and myofascial pain. PROCEDURE: Trigger point injections right cervical paraspinous musculature as well as right trapezius musculature under sterile prep and drape using local anesthetic. MEDICATION INJECTED: A total of 40 mg Depo-Medrol plus total of 4 mL of 0.25% bupivacaine after negative aspiration at each injection. CONDITION AT DISCHARGE: Stable. The patient tolerated procedure well, had no complications. LUIS ARMANDO WHEELER MD DR: CHAZ/paul JOB#: [id number] / [id number]
== END | disposition home or self-care (01) ==
LOC: PNCL 09:01
PROVIDERS: ATTEND Anesthesiology
DX: M50.30 Other cervical disc degeneration, unspecified cervical region (principal); M47.812 Spondylosis without myelopathy or radiculopathy, cervical region; I10 Essential (primary) hypertension; E11.9 Type 2 diabetes mellitus without complications; F17.200 Nicotine dependence, unspecified, uncomplicated; Z86.69 Personal history of other diseases of the nervous system and sense organs; Z90.49 Acquired absence of other specified parts of digestive tract; Z86.39 Personal history of other endocrine, nutritional and metabolic disease; Z72.89 Other problems related to lifestyle
CPT/HCPCS: 20552; J1030; J3490

== ENCOUNTER → 2017-09-14 | Outpatient (CLI) | payer MEDICARE ==
[~2017-09-14] MED LIST changes: -AMLO10TA2 PO; -ASPI-630 PO; +BUPIVACAINE MPF 0.25% 10 ML VIAL.; -BUPIVACAINE MPF 0.25% 10 ML VIAL. ONE; -CARV6.252 PO; -DONE10TA7 PO; -FOSI40TA PO; -HYDR-2869 PO; -HYDR12.53 PO; -MELO15TA23 PO; -MEMA10TA PO; -METF500T4 PO; -MULT-208 PO; -OMEG300C PO; -POTA20TA4 PO; -POTASSIUM CHLO10 MEQ PO; -PRAV40TA2 PO; -SIMV40TA3 PO; -TERA2CAP3 PO; -TERA5CAP3 PO; -VIT1TABL32 PO; +methylPREDNISolone ACETATE 40 MG/ML VIAL.; -methylPREDNISolone ACETATE 40 MG/ML VIAL. ONE
== END | disposition home or self-care (01) ==
LOC: PNCL 08:45
DX: M79.1 Myalgia (principal); M50.10 Cervical disc disorder with radiculopathy, unspecified cervical region; M47.22 Other spondylosis with radiculopathy, cervical region; F03.90 Unspecified dementia, unspecified severity, without behavioral disturbance, psychotic disturbance, mood disturbance, and anxiety; I10 Essential (primary) hypertension; Z90.49 Acquired absence of other specified parts of digestive tract; E11.9 Type 2 diabetes mellitus without complications; Z72.89 Other problems related to lifestyle; Z87.891 Personal history of nicotine dependence
CPT/HCPCS: 20552; J1030; J3490

== ENCOUNTER → 2017-10-03 | Outpatient (CLI) | payer MEDICARE | END | disposition home or self-care (01) | LOC: PNCL 09:47 | DX: M79.1 Myalgia (principal); M50.30 Other cervical disc degeneration, unspecified cervical region; M47.812 Spondylosis without myelopathy or radiculopathy, cervical region; I10 Essential (primary) hypertension; E11.9 Type 2 diabetes mellitus without complications; F17.200 Nicotine dependence, unspecified, uncomplicated; Z90.49 Acquired absence of other specified parts of digestive tract; Z86.69 Personal history of other diseases of the nervous system and sense organs; Z86.39 Personal history of other endocrine, nutritional and metabolic disease; Z72.89 Other problems related to lifestyle | CPT/HCPCS: 20552; J1030; J3490 ==

== ENCOUNTER 2018-04-14 08:27 | Outpatient (CLI) | payer MEDICARE ==
[2018-04-14 09:03] LABS: BASO # 0.1 x10^3/uL (0.0-0.2); BASO % 0 % (0-3); EOS # 0.8 x10^3/uL (0.0-0.7); EOS % 6 % (0-3); HEMATOCRIT 31.6 % (39.0-53.0); HEMOGLOBIN 10.6 g/dL (13.0-17.5); LYMPH # 10.5 x10^3/uL (1.0-4.8); LYMPH % 75 % (24-48); MEAN CORPUSCULAR HEMOGLOBIN 29 pg (25-35); MEAN CORPUSCULAR HGB CONC 33 g/dL (31-37); MEAN CORPUSCULAR VOLUME 87 fL (79-100); MONO # 0.6 x10^3/uL (0.0-1.1); MONO % 4 % (0-9); NEUT # 1.9 x10^3uL (1.8-7.7); NEUT % 14 % (31-73); PLATELET COUNT 119 x10^3/uL (140-400); RED BLOOD COUNT 3.62 x10^6/uL (4.30-5.70); RED CELL DISTRIBUTION WIDTH 15.6 % (11.5-14.5); WHITE BLOOD COUNT 13.9 x10^3/uL (4.0-11.0)
[2018-04-14 09:12] LABS: ADD MAN DIFF? YES
[2018-04-14 09:19] LABS: INR 1.1 (0.8-1.1); PROTHROMBIN TIME PATIENT 13.4 SEC (11.7-14.0)
[2018-04-14 09:20] LABS: PARTIAL THROMBOPLASTIN TIME 45 SEC (24-38)
[2018-04-14] MEDS ORDERED: LIDOCAINE 1%/EPI 1:100,000 20 ML VIAL. (09:40)
[2018-04-14] MEDS ORDERED: fentaNYL PF VIAL 100 MCG/2 ML VIAL (09:55)
[2018-04-14] MEDS ORDERED: MIDAZOLAM HCL/PF 2 MG/2 ML VIAL. (09:55)
[2018-04-14 10:00] LABS: % BASOS 1 % (0-3); % EOS 7 % (0-5); % LYMPHS 75 % (24-48); % MONOS 2 % (0-10); % SEGS 15 % (35-66); PLT ESTIMATE DECREASED (ADEQUATE); SMUDGE CELLS PRESENT
[2018-04-14] MEDS: LIDOCAINE 1%/EPI 1:100,000 20 ML VIAL. IJ (10:15)
[2018-04-14] MEDS: MIDAZOLAM HCL/PF 2 MG/2 ML VIAL. IV (10:15)
[2018-04-14] MEDS: fentaNYL PF VIAL 100 MCG/2 ML VIAL IV (10:15)
== END 2018-04-14 12:00 | disposition home or self-care (01) ==
LOC: INTRAD 08:27
DX: C95.90 Leukemia, unspecified not having achieved remission (principal); Z79.01 Long term (current) use of anticoagulants; H35.30 Unspecified macular degeneration; F03.90 Unspecified dementia, unspecified severity, without behavioral disturbance, psychotic disturbance, mood disturbance, and anxiety; E78.00 Pure hypercholesterolemia, unspecified; I10 Essential (primary) hypertension; Z87.01 Personal history of pneumonia (recurrent); Z90.49 Acquired absence of other specified parts of digestive tract; E11.9 Type 2 diabetes mellitus without complications; Z72.89 Other problems related to lifestyle; F17.200 Nicotine dependence, unspecified, uncomplicated; Z98.890 Other specified postprocedural states; Z79.899 Other long term (current) drug therapy; Z79.82 Long term (current) use of aspirin; Z79.84 Long term (current) use of oral hypoglycemic drugs; Z83.3 Family history of diabetes mellitus; Z80.3 Family history of malignant neoplasm of breast; Z82.49 Family history of ischemic heart disease and other diseases of the circulatory system
CPT/HCPCS: 36415; 36561; 76937; 77001; 85007; 85025; 85610; 85730; 99152; 99153; C1751; C1788; C1892; J0690; J2250; J3010; J3490